=== PATIENT | female | born 2000 | race Caucasian/White ===

== ENCOUNTER 2022-02-19 09:43 | Emergency (ER) | payer OTHER, SELFPAY ==
--- NOTE | 2022-02-19 | ECG_ITS ---
Test Reason : med reaction Blood Pressure : / mmHG Vent. Rate : 062 BPM Atrial Rate : 062 BPM P-R Int : 164 ms QRS Dur : 102 ms QT Int : 414 ms P-R-T Axes : 046 041 028 degrees QTc Int : 420 ms Normal sinus rhythm Cannot rule out Anterior infarct , age undetermined but probably from body habitus and lead placement Borderline ECG When compared with ECG of 03-AUG-2012 19:00, No significant changes seen Referred By: Generic ED Physician Electronically Signed By:AZ GUTIERREZ
[2022-02-19 09:53] VITALS: BP 153/57; PULSE 90; O2SAT 100
[2022-02-19 10:23] VITALS: BP 106/59; PULSE 83; RESP 18; TEMP 36.9; O2SAT 100; BMI 19.7
[2022-02-19] MEDS: 0.9 % Sodium Chloride 1,000 ML 999 ML IVCONT (13:30)
[2022-02-19 13:36] LABS: MANUAL DIFF FLAG NO
[2022-02-19 13:39] VITALS: BP 101/62; BP 102/50; PULSE 64; PULSE 65
[2022-02-19 13:40] VITALS: BP 98/69; PULSE 77
[2022-02-19 13:42] LABS: Basophils Percent Auto 0.1 % (0-2); Eosinophils Percent Auto 0.4 % (0-4); Hematocrit 39.6 % (37.0-47.0); Hemoglobin 13.5 g/dl (12.0-16.0); Imm Gran Abs Auto 0.02 X10*3/uL (0.00-0.03); Imm Gran Pct Auto 0.3 % (0.0-0.4); Lymphocytes Absolute Auto 1.9 X10*3/uL (1.2-4.9); Lymphocytes Percent Auto 25.4 % (20-40); Mean Corpuscular HGB Conc 34.1 g/dl (31.0-35.0); Mean Corpuscular Hemoglobin 31.6 pg (27.0-33.0); Mean Corpuscular Volume 92.7 fL (80.0-98.0); Mean Platelet Volume 10.3 fL (9.4-12.3); Monocytes Absolute Auto 0.5 X10*3/uL (0.1-1.2); Neutrophils Absolute Auto 5.1 x10*3/uL (2.0-8.3); Neutrophils Percent Auto 67.8 % (45-73); Platelet Count 194 X10*3/uL (160-400); Red Blood Count 4.27 X10*6/uL (4.20-5.50); Red Cell Distribution Width 13.1 % (11.0-16.0); White Blood Count 7.5 X10*3/uL (4.8-10.8)
[2022-02-19 13:54] LABS: Appearance Urine CLEAR; Color Urine STRAW; Glucose Urine UA NEG (NEG); Leukocyte Esterase Urine NEG (NEG); Nitrite Urine NEG (NEG); Urine Blood NEG (NEG); Urine Ketones NEG (NEG); Urine Protein NEG (NEG-TRACE)
[2022-02-19 13:55] LABS: UPreg QC Valid YES; Urine Pregnancy NEGATIVE (NEGATIVE)
[2022-02-19 14:26] LABS: Fentanyl, urine Not Detected (Not Detect)
[2022-02-19 14:30] LABS: Alanine Aminotransferase 15 U/L (0-31); Albumin Level 4.3 g/dL (3.5-5.0); Alkaline Phosphatase 90 U/L (39-117); Anion Gap 13 (12-20); Aspartate Amino Transferase 19 U/L (5-31); Bilirubin Total 0.4 mg/dL (0.0-1.0); Blood Urea Nitrogen 9 mg/dL (9-16); Calcium 9.2 mg/dL (8.4-10.2); Carbon Dioxide 24 mmol/L (22-29); Chloride 105 mmol/L (96-108); Creatinine Clr Calc Pharmacy 98.2; Estimated Glomerular Filt Rate > 60; Glucose Random 79 mg/dL (60-115); Magnesium 1.9 mg/dL (1.6-2.6); Potassium 4.2 mmol/L (3.3-5.1); Sodium 138 mmol/L (135-145); Total Protein 7.3 g/dL (6.5-8.0)
[2022-02-19 14:31] LABS: Amphetamine Screen Urine Not Detected (Not Detect); Barbiturates, Urine Not Detected (Not Detect); Cannabinoid Screen Urine Not Detected (Not Detect); Cocaine Screen Urine Not Detected (Not Detect); Opiate Screen Urine Not Detected (Not Detect); Phencyclidine Screen Urine Not Detected (Not Detect)
--- NOTE | 2022-02-19 14:47 | ED.GENADULT ---
HPI - General Adult General Chief complaint: General Medical Stated complaint: RXN TO NEW MED,NAUSEA,LIGHTHEADED Time Seen by Provider: 02/19/22 13:11 Source: patient and EMS Mode of arrival: EMS Limitations: no limitations History of Present Illness HPI narrative: 21-year-old female with a past medical history of depression who was recently prescribed Cymbalta 20 mg on Saturday02/17/2022 and took the Cymbalta around 09:00 presenting to the ED with complaints of intermittent dizziness/lightheadedness with associated hot and cold sweats and nausea since 13:00 on Saturday after she took the Cymbalta. Reports that she went to [facility] the same day but was never seen due to a long wait and she left without being seen. She has been taking the Cymbalta since Saturday although she still developing the mild nausea, feeling spacey and lightheadedness. 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 An IV was placed by EMS prior to arrival although she refused any meds due to her nausea she reported was not bad. At this time she reports that she does not feel dizzy or lightheaded and she does not have the hot and cold sweats at this time she does have some mild nausea but does not want any medications for at this time. She denies any recent falls or trauma, changes in vision, fevers, nasal congestion/rhinorrhea, sinus pressure, ear pain, sore throat, chest pain or shortness of breath, dyspnea on exertion, orthopnea, palpitations, paresthesias, vomiting, abdominal pain, back pain, dysuria, hematuria, abnormal vaginal discharge, lower extremity edema or calf tenderness, recent travel or sick contacts, rashes, recent immobilization or surgery, history of cancer, any estrogen usage or any other symptoms complaints or concerns at this time. MD complaint: Dizziness, nausea, hot and cold sweats after starting Cymbalta Onset (ago): day(s) (2) Related Data Previous Rx's Medication Instructions Recorded ondansetron 4 mg disintegrating 4 mg PO Q6H PRN nausea and 02/19/22 tablet vomiting #14 tabs Allergies Allergy/AdvReac Type Severity Reaction Status Date / Time sulfamethoxazole Allergy Seizure Verified 02/19/22 10:29 [From Bactrim] trimethoprim [From Bactrim] Allergy Seizure Verified 02/19/22 10:29 Review of Systems Review of Systems: Constitutional : No changes in activity, No lethargy, No recent prior head injury, No agitation, No increased fussiness ENT/Mouth : No Ear Pain, No Nasal discharge/drainage Eyes: No Eye Pain, No Swelling, No Redness, No Foreign Body, No Vision Changes Cardiovascular : No Chest Pain, No SOB Respiratory : No Cough Gastrointestinal : + Nausea, No Vomiting, No abdominal Pain Genitourinary : No Dysuria, No Urinary Frequency, No Urinary Incontinence, No Urgency, No Flank Pain Musculoskeletal : No joint pain, No neck stiffness, No back pain/injury Skin : No lacerations Neuro : + lightheadedness/dizziness, No unsteady gait, No Paresthesias, No Loss of Consciousness, No altered mental status, No Headache Denies past medical history of HIV, recent trauma, coagulopathy, recent spinal/ epidural procedure, new medication, URI symptoms, close contacts with similar symptoms, tick bite, or known CO2 exposure. Yes all other systems are reviewed and are negative PMFSH Past Medical History Attestation statement: The following information was validated with the patient. Source: old records reviewed and nursing notes reviewed Social History Social History Advance Directives: No Advance Directives Information Provided: No Physical Exam ED Vital Signs: Vital Signs - 24 hr 02/19/22 10:23 02/19/22 13:39 02/19/22 13:39 Temperature 98.4 F Pulse Rate 83 65 64 Respiratory Rate 18 Blood Pressure 106/59 L 102/50 L 101/62 Pulse Oximetry 100 Oxygen Delivery Method Room Air 02/19/22 13:40 Temperature Pulse Rate 77 Respiratory Rate Blood Pressure 98/69 Pulse Oximetry Oxygen Delivery Method BMI result Body Mass Index 19.7 vital signs have been reviewed as normal and appeared to be correct. Blood pressure normal. Heart rate normal. Respiration rate normal. Temperature normal. Oxygen saturation normal. Appearance: Alert. Oriented X3. No acute distress. Head: Normal external exam. Normocephalic. Atraumatic. Eyes: PERRLA. EOMI. Conjunctiva and sclera normal. Eyelids normal. ENT: EAC normal. TM's Normal. Pharynx normal. Uvula midline. Moist mucous membranes. No lesions/ulcerations or masses noted on the tongue. Normal voice. No trismus noted. No drooling noted. No muffled voice noted. Neck: Normal inspection. Neck supple. FROM. No adenopathy. Thyroid Normal. No tracheal deviation noted. No crepitus is noted. No meningeal signs. No neck mass noted. No signs of trauma noted. CVS: Normal heart rate and rhythm. Heart sound normal. Pulses normal throughout. No murmurs/rales/gallops. Respiratory: No respiratory distress. Painless inspiration. Breath sounds normal. No wheezes/rales/rhonchi noted. Chest nontender. No crepitus is noted. No signs of trauma noted. No accessory muscle usage noted or decreased air movement noted. No signs of trauma. Abdomen: Soft and nontender. Bowel sounds normal in all 4 quadrants. No distention noted. No organomegaly noted. No visible injury noted. Back: No CVA tenderness. Full range of motion noted. Nontender. No signs of trauma. Patient neuro intact bilaterally and distally on all 4 extremities. Patient's reflexes intact bilaterally and distally on all 4 extremities. No rashes/lesion/induration/fluctuance or signs of infection noted. Skin: Skin warm and dry. Normal skin color. Normal skin turgor. No rashes/lesions/lacerations noted. Extremities: No lower extremity edema. No calf tenderness is noted. Extremities exhibit normal range of motion and nontender. Neuro: Oriented X 3. No motor deficit. No sensory deficit. Reflexes normal. Normal steady gait. No focal neuro deficits noted. CN's II-XII intact bilaterally? Vascular: + radial pulses/+ 2 distal pedal pulses/+2 dorsalis pedis b/l. Normal cap refill. No cyanosis noted to upper extremity nails and lower extremity toes nails. Course Course Course Narrative: 13:20pm - 21-year-old female with a past medical history of depression who was recently prescribed Cymbalta 20 mg on Saturday02/17/2022 and took the Cymbalta around 09:00 presenting to the ED with complaints of intermittent dizziness/lightheadedness with associated hot and cold sweats and nausea since 13:00 on Saturday after she took the Cymbalta. Reports that she went to [facility] the same day but was never seen due to a long wait and she left without being seen. She has been taking the Cymbalta since Saturday although she still developing the mild nausea, feeling spacey and lightheadedness. 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 An IV was placed by EMS prior to arrival although she refused any meds due to her nausea she reported was not bad. At this time she reports that she does not feel dizzy or lightheaded and she does not have the hot and cold sweats at this time she does have some mild nausea but does not want any medications for at this time. Plan: Labs, EKG, orthostatic vitals, UA, drugs of abuse screen and [facility] provide a L of IV fluids and re-evaluate. Reevaluation(s) Reevaluation #1: - labs reviewed and all within normal limits. UA within normal limits no evidence of UTI. Patient negative for . Benzo screen is pending although all other drugs negative. EKG is normal sinus rhythm no acute ischemic changes with a ventricular rate of 62 with a normal SC interval normal QRS duration normal QT/QTC interval. No acute ischemic changes are noted. Similar compared to prior EKG 08/03/2012. - therefore at this time patient most likely medication reaction/adverse effect. I explained to her that I would not take the medications and she has not taken it since Saturday and I would call her prescriber for a new medication or further evaluation treatment to return if any new or worsening symptoms follow up with primary care provider. Patient understands agrees with this plan. Time: 14:57 Medical Decision Making Medical Records Medical records reviewed: Yes I reviewed the patient's medical records. Lab Data Lab results reviewed: Yes I reviewed the patient's lab results. Result diagrams: 02/19/22 13:33 02/19/22 13:33 Labs: Lab Results 02/19/22 02/19/22 02/19/22 Range/Units 13:33 13:33 13:35 WBC 7.5 (4.8-10.8) X10*3/uL RBC 4.27 (4.20-5.50) X10*6/uL Hgb 13.5 (12.0-16.0) g/dl Hct 39.6 (37.0-47.0) % MCV 92.7 (80.0-98.0) fL MCH 31.6 (27.0-33.0) pg MCHC 34.1 (31.0-35.0) g/dl RDW 13.1 (11.0-16.0) % Plt Count 194 (160-400) X10*3/uL MPV 10.3 (9.4-12.3) fL Immature Gran % (Auto) 0.3 (0.0-0.4) % Neut % (Auto) 67.8 (45-73) % Lymph % (Auto) 25.4 (20-40) % Chase % (Auto) 6.0 (2-11) % Eos % (Auto) 0.4 (0-4) % Baso % (Auto) 0.1 (0-2) % Lymph # (Auto) 1.9 (1.2-4.9) X10*3/uL Chase # (Auto) 0.5 (0.1-1.2) X10*3/uL Eos # (Auto) 0.0 (0.0-0.4) X10*3/uL Baso # (Auto) 0.0 (0.0-0.2) X10*3/uL Abs Immat Gran (auto) 0.02 (0.00-0.03) X10*3/uL Absolute Neuts (auto) 5.1 (2.0-8.3) x10*3/uL Absolute Nucleated RBC 0.000 (0.0-0.012) X10*3/uL Nucleated RBC % (auto) 0.0 (0.0-0.2) /100WBC Sodium 138 (135-145) mmol/L Potassium 4.2 (3.3-5.1) mmol/L Chloride 105 (96-108) mmol/L Carbon Dioxide 24 (22-29) mmol/L Anion Gap 13 (12-20) BUN 9 (9-16) mg/dL Creatinine 0.74 (0.5-1.4) mg/dL Estim Creat Clear Calc 98.2 Estimated GFR > 60 Random Glucose 79 (60-115) mg/dL Calcium 9.2 (8.4-10.2) mg/dL Magnesium 1.9 (1.6-2.6) mg/dL Total Bilirubin 0.4 (0.0-1.0) mg/dL AST 19 (5-31) U/L ALT 15 (0-31) U/L Alkaline Phosphatase 90 (39-117) U/L Total Protein 7.3 (6.5-8.0) g/dL Albumin 4.3 (3.5-5.0) g/dL Urine Color STRAW Urine Appearance CLEAR Urine pH 8.0 (5.0-8.0) Ur Specific [place] 1.010 (1.005-1.025) Urine Protein NEG (NEG-TRACE) MG/DL Urine Glucose (UA) NEG (NEG) MG/DL Urine Ketones NEG (NEG) MG/DL Urine Blood NEG (NEG) Urine Nitrite NEG (NEG) Ur Leukocyte Esterase NEG (NEG) Urine Test (NEGATIVE) Urine Opiates Screen (Not Detect) Urine Fentanyl Screen (Not Detect) Ur Barbiturates Screen (Not Detect) Ur Phencyclidine Scrn (Not Detect) Ur Amphetamines Screen (Not Detect) Urine Cocaine Screen (Not Detect) U Marijuana (THC) Screen (Not Detect) 02/19/22 02/19/22 Range/Units 13:35 13:35 WBC (4.8-10.8) X10*3/uL RBC (4.20-5.50) X10*6/uL Hgb (12.0-16.0) g/dl Hct (37.0-47.0) % MCV (80.0-98.0) fL MCH (27.0-33.0) pg MCHC (31.0-35.0) g/dl RDW (11.0-16.0) % Plt Count (160-400) X10*3/uL MPV (9.4-12.3) fL Immature Gran % (Auto) (0.0-0.4) % Neut % (Auto) (45-73) % Lymph % (Auto) (20-40) % Chase % (Auto) (2-11) % Eos % (Auto) (0-4) % Baso % (Auto) (0-2) % Lymph # (Auto) (1.2-4.9) X10*3/uL [place] # (Auto) (0.1-1.2) X10*3/uL Eos # (Auto) (0.0-0.4) X10*3/uL Baso # (Auto) (0.0-0.2) X10*3/uL Abs Immat Gran (auto) (0.00-0.03) X10*3/uL Absolute Neuts (auto) (2.0-8.3) x10*3/uL Absolute Nucleated RBC (0.0-0.012) X10*3/uL Nucleated RBC % (auto) (0.0-0.2) /100WBC Sodium (135-145) mmol/L Potassium (3.3-5.1) mmol/L Chloride (96-108) mmol/L Carbon Dioxide (22-29) mmol/L Anion Gap (12-20) BUN (9-16) mg/dL Creatinine (0.5-1.4) mg/dL Estim Creat Clear Calc Estimated GFR Random Glucose (60-115) mg/dL Calcium (8.4-10.2) mg/dL Magnesium (1.6-2.6) mg/dL Total Bilirubin (0.0-1.0) mg/dL AST (5-31) U/L ALT (0-31) U/L Alkaline Phosphatase (39-117) U/L Total Protein (6.5-8.0) g/dL Albumin (3.5-5.0) g/dL Urine Color Urine Appearance Urine pH (5.0-8.0) Ur Specific [place] (1.005-1.025) Urine Protein (NEG-TRACE) MG/DL Urine Glucose (UA) (NEG) MG/DL Urine Ketones (NEG) MG/DL Urine Blood (NEG) Urine Nitrite (NEG) Ur Leukocyte Esterase (NEG) Urine Test NEGATIVE (NEGATIVE) Urine Opiates Screen Not Detected (Not Detect) Urine Fentanyl Screen Not Detected (Not Detect) Ur Barbiturates Screen Not Detected (Not Detect) Ur Phencyclidine Scrn Not Detected (Not Detect) Ur Amphetamines Screen Not Detected (Not Detect) Urine Cocaine Screen Not Detected (Not Detect) U Marijuana (THC) Screen Not Detected (Not Detect) ECG Data Attestation: I personally reviewed and interpreted this ECG as follows: Prior ECG tracings: available for review Interpretation: Normal sinus rhythm with ventricular rate of 62 with a normal SC interval normal QRS duration normal QT/QTC interval. No acute ischemic change are noted. Similar compared to prior EKG. Discharge Plan Discharge Clinical Impression: Adverse reaction to antidepressant drug Patient Disposition: Home, Self-Care Instructions: Adverse Drug Reaction (ED) Prescriptions: New ondansetron 4 mg tablet,disintegrating 4 mg PO Q6H PRN (Reason: nausea and vomiting) Qty: 14 0RF Referrals: Physician,Unknown J [Primary Care Provider] - 2 days (your pcp) Stand Alone Forms: Work/School Release
== END 2022-02-19 15:26 | disposition home or self-care (01) ==
PROVIDERS: Physician Assistant Medical; Emergency Provider Emergency Medicine Emergency Medical Services
DX: R42 Dizziness and giddiness (principal); R11.2 Nausea with vomiting, unspecified; R61 Generalized hyperhidrosis; Z79.899 Other long term (current) drug therapy
CPT/HCPCS: 36415; 80053; 80307; 81003; 81025; 83735; 85025; 93005; 99284

== ENCOUNTER 2022-04-29 18:48 | Emergency (ER) | payer OTHER, SELFPAY ==
[2022-04-29 19:30] VITALS: BP 128/71; PULSE 84; RESP 16; TEMP 36.9; O2SAT 99; BMI 19.7
[2022-04-29 21:21] VITALS: BP 102/56; PULSE 80; RESP 18; TEMP 37; O2SAT 100
--- NOTE | 2022-04-29 21:36 | ED_ITS ---
HPI - Female Genitourinary General Chief complaint: Vaginal Bleeding Stated complaint: Lower Abd Pain Time Seen by Provider: 04/29/22 21:15 Source: patient Mode of arrival: ambulatory History of Present Illness HPI Narrative: 21-year-old female without significant past medical history presents with onset of vaginal bleeding approximately 2 weeks after her previous. That she states has been associated abdominal discomfort, with ?menstrual- like pain? but states that the bleeding is not her ?normal menstrual bleeding ?. Patient does report that she has stopped taking her control in January and also reports unprotected sexual intercourse approximately 2 weeks ago. She did take a home test which was negative. Otherwise, she denies any nausea, vomiting, fever, chills, vaginal discharge or foul smell Related Data Previous Rx's Medication Instructions Recorded ondansetron 4 mg disintegrating 4 mg PO Q6H PRN nausea and 02/19/22 tablet vomiting #14 tabs Allergies Allergy/AdvReac Type Severity Reaction Status Date / Time sulfamethoxazole Allergy Seizure Verified 02/19/22 10:29 [From Bactrim] trimethoprim [From Bactrim] Allergy Seizure Verified 02/19/22 10:29 Review of Systems Review of Systems: Pertinent positives and negatives as stated in HPI 10 point review of systems is otherwise negative. PMFSH Past Medical History Source: nursing notes reviewed Social History Social History Advance Directives: No Advance Directives Information Provided: No Physical Exam Vital Signs: Vital Signs: Last Vital Signs Temp 98.6 F 04/29/22 21:21 Pulse 80 04/29/22 21:21 Resp 18 04/29/22 21:21 BP 102/56 L 04/29/22 21:21 Pulse Ox 100 04/29/22 21:21 O2 Del Method 04/29/22 21:21 BMI result Body Mass Index 19.7 VITAL SIGNS: Reviewed. GENERAL: Well developed, well nourished, in no acute distress. HEAD: Normocephalic/atraumatic EYES: PERRLA, EOMI EARS: Ext canals without abnormality OROPHARYNX: no oral lesions noted, posterior pharynx clear LUNGS: Normal breath sounds. No adventitious sounds or accessory muscle use. SpO2<100> CARDIOVASCULAR: Regular rate and rhythm without noted murmurs ABDOMEN: Soft, non-tender, non-distended with bowel sounds. MUSCULOSKELETAL: No tenderness, deformities, or effusions noted on gross inspection. EXTREMITIES: No cyanosis, clubbing or edema. SKIN: Inspection of the skin reveals no rashes NEUROLOGIC: Alert and oriented x 4. Strength and sensation to light touch were grossly intact x 4. Course Course Course Narrative: 21-year-old female with history and clinical presentation most consistent with menstrual bleeding, will rule out /UTI/STI. Review of all investigations otherwise negative for UTI, , and no clinical suspicion for STI symptoms at this time. Patient was encouraged to follow-up on the results via the patient portal. [facility] - Female Genitourinary Lab Data Labs: Lab Results 04/29/22 04/29/22 Range/Units 21:58 21:58 Urine Color Yellow Urine Appearance Clear Urine pH 7.0 (5.0-9.0) Ur Specific [place] <= 1.005 (1.005-1.025) Urine Protein Negative (Neg-Trace) mg/dL Urine Glucose (UA) Negative (Negative) mg/dL Urine Ketones Negative (Negative) mg/dL Urine Blood Small (1+) H (Negative) Urine Nitrite Negative (Negative) Ur Leukocyte Esterase Negative (Negative) Urine RBC 0-2 (0-2) /HPF Urine WBC 0-5 (0-5) /HPF Ur Squamous Epith Cells 0-2 (0-2) /HPF Urine Bacteria None Seen (None Seen) Hyaline Casts 0-2 (0-2) /LPF Urine Test NEGATIVE (NEGATIVE) Discharge Plan Discharge Clinical Impression: Menstrual cramps, Irregular menstrual bleeding Patient Disposition: Home, Self-Care Instructions: Dysmenorrhea (ED) Additional Instructions: 1. Tylenol 1000 mg, orally, every 6 hours as needed for pain control. Do not exceed 4000 mg within 24 hours. 2. Ibuprofen 400 mg, orally with milk or food, every 6 hours as needed for pain control. You may take this medication with the Tylenol. 3. Recommend heating pad for additional symptom relief of your discomfort. 4. Follow-up with your primary care provider and/or your science writer for re- evaluation further outpatient workup. Return to the ER for worsening symptoms. Prescriptions: No Action ondansetron 4 mg tablet,disintegrating 4 mg PO Q6H PRN (Reason: nausea and vomiting) Qty: 14 0RF Referrals: Mariely Dailey, MARK, MEDICAL GENETICIST, ZOOLOGY PROFESSOR-C [Primary Care Provider] -
[2022-04-29] MEDS: Acetaminophen 325 MG TABLET 975 MG PO (21:57)
[2022-04-29 22:32] LABS: Appearance Urine Clear; Color Urine Yellow; Glucose Urine UA Negative (Negative); Leukocyte Esterase Urine Negative (Negative); Nitrite Urine Negative (Negative); Specific Gravity - Urine <= 1.005 (1.005-1.025); Urine Blood Small (1+) (Negative); Urine Ketones Negative (Negative); Urine Protein Negative (Neg-Trace)
[2022-04-29 22:35] LABS: UPreg QC Valid YES; Urine Pregnancy NEGATIVE (NEGATIVE)
[2022-04-29 22:49] LABS: Bacteria Urine None Seen (None Seen); Hyaline Casts Urine 0-2 /LPF (0-2); RBC Urine 0-2 /HPF (0-2); Squamous Epithelial Cell Urine 0-2 /HPF (0-2); WBC Urine 0-5 /HPF (0-5)
[2022-04-30 01:00] LABS: CT PCR NOT DETECTED (Not Detect.); NG PCR NOT DETECTED (Not Detect.)
== END 2022-04-29 23:39 | disposition home or self-care (01) ==
PROVIDERS: Emergency Provider Student in an Organized Health Care Education/Training Program; PCP Registered Nurse
DX: N93.8 Other specified abnormal uterine and vaginal bleeding (principal); R10.2 Pelvic and perineal pain; Z79.899 Other long term (current) drug therapy
CPT/HCPCS: 81001; 81025; 87491; 87591; 99283

== ENCOUNTER 2023-03-18 20:28 | Emergency (ER) | payer OTHER, SELFPAY ==
--- NOTE | 2023-03-18 | ECG_ITS ---
Test Reason : PALPITATIONS Blood Pressure : / mmHG Vent. Rate : 081 BPM Atrial Rate : 081 BPM P-R Int : 170 ms QRS Dur : 104 ms QT Int : 388 ms P-R-T Axes : 069 051 045 degrees QTc Int : 450 ms Sinus rhythm with occasional Premature ventricular complexes Cannot rule out Anterior infarct (cited on or before 19-FEB-2022) Abnormal ECG When compared with ECG of 19-FEB-2022 12:48, Premature ventricular complexes are now Present Referred By: Generic ED Physician Electronically Signed By:DONNA CARDONA MD
[2023-03-18 20:57] VITALS: BP 119/58; PULSE 78; RESP 18; TEMP 36.7; O2SAT 99; BMI 19.7
--- NOTE | 2023-03-18 20:57 | ED_ITS ---
HPI - General Adult General Chief complaint: Arrhythmia/Palpitations Stated complaint: chest palpitations Related Data Previous Rx's Medication Instructions Recorded ondansetron 4 mg disintegrating 4 mg PO Q6H PRN nausea and 02/19/22 tablet vomiting #14 tabs Allergies Allergy/AdvReac Type Severity Reaction Status Date / Time sulfamethoxazole Allergy Seizure Verified 03/18/23 20:56 [From Bactrim] trimethoprim [From Bactrim] Allergy Seizure Verified 03/18/23 20:56 [facility] Social History Social History Advance Directives: No Advance Directives Information Provided: No Physical Exam ED Vital Signs: BMI result Body Mass Index 19.7 Course Course Course Narrative: RME- 22 year old female presents for evaluation of palpitations. Symptoms started yesterday and worsesned today. Plan for labs, ekg, , drug screen Medical Decision Making Lab Data 03/18/23 21:33 03/18/23 21:33 Labs: Lab Results 03/18/23 03/18/23 Range/Units 21:33 21:47 WBC 5.7 (4.8-10.8) X10*3/uL RBC 3.89 L (4.20-5.50) X10*6/uL Hgb 12.8 (12.0-16.0) g/dl Hct 37.0 (37.0-47.0) % MCV 95.1 (80.0-98.0) fL MCH 32.9 (27.0-33.0) pg MCHC 34.6 (31.0-35.0) g/dl RDW 12.5 (11.0-16.0) % Plt Count 219 (160-400) X10*3/uL MPV 10.1 (9.4-12.3) fL Immature Gran % (Auto) 0.2 (0.0-0.4) % Neut % (Auto) 50.5 (45-73) % Lymph % (Auto) 41.3 H (20-40) % [place] % (Auto) 6.2 (2-11) % Eos % (Auto) 1.4 (0-4) % Baso % (Auto) 0.4 (0-2) % Lymph # (Auto) 2.3 (1.2-4.9) X10*3/uL [place] # (Auto) 0.4 (0.1-1.2) X10*3/uL Eos # (Auto) 0.1 (0.0-0.4) X10*3/uL Baso # (Auto) 0.0 (0.0-0.2) X10*3/uL Abs Immat Gran (auto) 0.01 (0.00-0.03) X10*3/uL Absolute Neuts (auto) 2.9 (2.0-8.3) x10*3/uL Absolute Nucleated RBC 0.000 (0.0-0.012) X10*3/uL Nucleated RBC % (auto) 0.0 (0.0-0.2) /100WBC PT 12.5 (10.0-13.1) SEC INR 1.1 (0.9-1.1) APTT 27.4 (26.0-36.4) SEC Sodium 140 (135-145) mmol/L Potassium 4.1 (3.3-5.1) mmol/L Chloride 107 (96-108) mmol/L Carbon Dioxide 29 (22-29) mmol/L Anion Gap 8 L (12-20) BUN 8 L (9-16) mg/dL Creatinine 0.79 (0.5-1.4) mg/dL Estim Creat Clear Calc 91.1 Estimated GFR > 60 Random Glucose 86 (60-115) mg/dL Calcium 9.4 (8.4-10.2) mg/dL Magnesium 2.0 (1.6-2.6) mg/dL Total Bilirubin 0.2 (0.0-1.0) mg/dL AST 18 (5-31) U/L ALT 22 (0-31) U/L Alkaline Phosphatase 62 (39-117) U/L Troponin I High Sens < 2.7 (<3.5-17.0) ng/L Total Protein 7.2 (6.5-8.0) g/dL Albumin 4.2 (3.5-5.0) g/dL Lipase 35 (8-78) U/L TSH 0.93 (0.32-4.0) uIU/mL Urine Test NEGATIVE (NEGATIVE) Urine Opiates Screen Not Detected (Not Detect) Urine Fentanyl Screen Not Detected (Not Detect) Ur Barbiturates Screen Not Detected (Not Detect) Ur Phencyclidine Scrn Not Detected (Not Detect) Ur Amphetamines Screen Not Detected (Not Detect) U Benzodiazepines Scrn Not Detected (Not Detect) Urine Cocaine Screen Not Detected (Not Detect) U Marijuana (THC) Screen Not Detected (Not Detect) Discharge Plan Discharge Clinical Impression: Palpitations Patient Disposition: Elopement Prescriptions: No Action ondansetron 4 mg tablet,disintegrating 4 mg PO Q6H PRN (Reason: nausea and vomiting) Qty: 14 0RF Interventions: ED Discharge Assessment Last Done: 03/18/23 23:43 Discharge Date/Time: 03/18/23 23:43
[2023-03-18 21:49] LABS: Basophils Percent Auto 0.4 % (0-2); Eosinophils Absolute Auto 0.1 X10*3/uL (0.0-0.4); Eosinophils Percent Auto 1.4 % (0-4); Hemoglobin 12.8 g/dl (12.0-16.0); Imm Gran Abs Auto 0.01 X10*3/uL (0.00-0.03); Imm Gran Pct Auto 0.2 % (0.0-0.4); Lymphocytes Absolute Auto 2.3 X10*3/uL (1.2-4.9); Lymphocytes Percent Auto 41.3 % (20-40); MANUAL DIFF FLAG NO; Mean Corpuscular HGB Conc 34.6 g/dl (31.0-35.0); Mean Corpuscular Hemoglobin 32.9 pg (27.0-33.0); Mean Corpuscular Volume 95.1 fL (80.0-98.0); Mean Platelet Volume 10.1 fL (9.4-12.3); Monocytes Absolute Auto 0.4 X10*3/uL (0.1-1.2); Monocytes Percent Auto 6.2 % (2-11); Neutrophils Absolute Auto 2.9 x10*3/uL (2.0-8.3); Neutrophils Percent Auto 50.5 % (45-73); Platelet Count 219 X10*3/uL (160-400); Red Blood Count 3.89 X10*6/uL (4.20-5.50); Red Cell Distribution Width 12.5 % (11.0-16.0); White Blood Count 5.7 X10*3/uL (4.8-10.8)
[2023-03-18 21:54] LABS: INTERNATIONAL NORM RATIO 1.1 (0.9-1.1); Prothrombin Time 12.5 SEC (10.0-13.1)
[2023-03-18 21:57] LABS: Partial Thromboplastin Time 27.4 SEC (26.0-36.4)
[2023-03-18 22:02] LABS: UPreg QC Valid YES; Urine Pregnancy NEGATIVE (NEGATIVE)
[2023-03-18 22:14] LABS: Amphetamine Screen Urine Not Detected (Not Detect); Barbiturates, Urine Not Detected (Not Detect); Benzodiazepines Screen Urine Not Detected (Not Detect); Cannabinoid Screen Urine Not Detected (Not Detect); Cocaine Screen Urine Not Detected (Not Detect); Fentanyl, urine Not Detected (Not Detect); Opiate Screen Urine Not Detected (Not Detect); Phencyclidine Screen Urine Not Detected (Not Detect)
[2023-03-18 22:16] LABS: Alanine Aminotransferase 22 U/L (0-31); Albumin Level 4.2 g/dL (3.5-5.0); Alkaline Phosphatase 62 U/L (39-117); Anion Gap 8 (12-20); Aspartate Amino Transferase 18 U/L (5-31); Bilirubin Total 0.2 mg/dL (0.0-1.0); Blood Urea Nitrogen 8 mg/dL (9-16); Calcium 9.4 mg/dL (8.4-10.2); Carbon Dioxide 29 mmol/L (22-29); Chloride 107 mmol/L (96-108); Creatinine Clr Calc Pharmacy 91.1; Estimated Glomerular Filt Rate > 60; Glucose Random 86 mg/dL (60-115); Lipase 35 U/L (8-78); Potassium 4.1 mmol/L (3.3-5.1); Sodium 140 mmol/L (135-145); Total Protein 7.2 g/dL (6.5-8.0)
[2023-03-18 22:17] LABS: Troponin-I High Sensitivity < 2.7 ng/L (<3.5-17.0)
[2023-03-18 22:31] LABS: TSH reflex Free T4 0.93 uIU/mL (0.32-4.0)
== END 2023-03-18 23:43 | disposition left against medical advice (07) ==
PROVIDERS: Physician Assistant; Emergency Provider Emergency Medicine; PCP Registered Nurse
DX: R00.2 Palpitations (principal)
CPT/HCPCS: 36415; 80053; 80307; 81025; 83690; 83735; 84443; 84484; 85025; 85610; 85730; 93005; 99283

== ENCOUNTER → 2023-03-18 21:40 | Outpatient (BNV) | payer OTHER, SELFPAY | PROVIDERS: Emergency Provider Emergency Medicine; PCP Registered Nurse; Visit Provider Internal Medicine Cardiovascular Disease | DX: R00.2 Palpitations (principal) | CPT/HCPCS: 93010 ==

== ENCOUNTER 2024-02-25 08:32 | Emergency (ER) | payer SELFPAY ==
[2024-02-25 08:40] VITALS: BP 110/62; PULSE 97; RESP 16; TEMP 37.1; O2SAT 99; BMI 20.6
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
[2024-02-25 09:17] VITALS: BP 113/61; BP 127/67; PULSE 80; PULSE 88
[2024-02-25 09:18] VITALS: BP 126/59; PULSE 95
[2024-02-25 10:20] VITALS: BP 104/55; PULSE 87; RESP 18; TEMP 37.1; O2SAT 99
[2024-02-25 10:24] VITALS: BP 104/55; PULSE 87; RESP 18; TEMP 37.1; O2SAT 99
== END 2024-02-25 10:26 | disposition home or self-care (01) ==
PROVIDERS: Emergency Provider Emergency Medicine
DX: F07.81 Postconcussional syndrome (principal); R42 Dizziness and giddiness; R53.83 Other fatigue
CPT/HCPCS: 99282; 99283

== ENCOUNTER 2025-06-17 11:52 | Outpatient (AMB) | payer OTHER, SELFPAY ==
--- NOTE | 2025-06-17 12:01 | A.OFFPC_ITS ---
Vital Signs 06/17/25 12:09 Height 54 ft Weight 120 lb 2 oz BMI 0.2 BP 100/58 L Blood Pressure Location Lt brachial Position Sitting Respiration 15 Pulse 91 Pulse Source Pulse Oximeter Temp 99.0 F Temp Source Temporal Artery Scan Pulse Oximetry (%) 98 Oxygen Delivery Method Room Air Intake Visit Reasons: CPE/PCOS Intake Note: Ruby presents in the office today to establish care. Allergies sulfamethoxazole (From Bactrim) Allergy (Verified 06/17/25 12:04) Seizure trimethoprim (From Bactrim) Allergy (Verified 06/17/25 12:04) Seizure Medication List - Last Reconciled 06/19/25 by AFIA Villalpando bupropion HCl XL (Wellbutrin XL) 150 mg PO QAM carbamide peroxide 6.5% (Debrox) 5 drps otic (ears) Q12H 4 days norethindrone ac-eth estradiol 1-20 mg-mcg (Junel) tabs PO Tobacco use date assessed: 06/17/25 Dental Screening Dental Screen Date: 06/17/25 Did you have a dental visit in the last 12 months?: Yes Did you have a dental problem in the last 6 months where you did not have access to dental care?: No Was dental information given to patient?: Patient has dentist HPI HPI Comments History of Present Illness Details 24 year old female with a pmhx of palpit ations and depression presents to establish care. Transfer from [facility]. Endorses 1.5 months of intermittent dizziness, mild ear pain alternating or affected both ears and intermittent decreased hearing of the ears. Left side is worse than the right. Symptoms fluctuate. Describes dizziness as dysequilibrium. No room spinning, lightheadedness or syncope. Denies headaches, allergies, congestion, vomiting, nausea. Denies new medications. Endorses a history of heart palpitations. Was seen at the ED in the past. Reportedly normal work up there. Happens when she goes from kneeling or sitting to standing. Stops after a minute or so. She was told to increase fluids so she started drinking gatorade. She says this is happening more frequently. Denies dizziness, syncope, chest pain and shortness of breath. Her blood pressure runs low. GM has a history of structural heart disease. She was diagnosed with PCOS by her PCP after lab evaluation. Requests info for [employer] providers and pelvic u/s. Anxiety and depression-sees therapist, Nidia Alford at [facility] Psychiatrist is through [facility]. They questioned if she might have ADHD, but she says they told her to go to PCP for evaluation. Endorses forgetfulness, problems focusing, difficulty completing tasks. Sister and niece have ADHD. ROS Constitutional: No unexplained weight loss, fever, chills, or night sweats. Eyes: No vision changes, blurry vision, double vision, eye pain, eye redness, eye discharge. ENT: Denies sneezing, congestion, runny nose or sore throat. Respiratory: No shortness of breath, cough or sputum production. Cardiovascular: No chest pain, chest pressure or chest discomfort. No pedal edema. Gastrointestinal: No anorexia, nausea, vomiting or diarrhea. No abdominal pain or blood in stool. Genitourinary: No dysuria, hematuria, urinary frequency. Neurologic: No headache, syncope, unilateral weakness, ataxia, numbness or tingling in the extremities. Musculoskeletal: No muscle pain, back pain, joint pain or swelling. Hematologic/Lymphatics: No bleeding or bruising. No painful lymph nodes. Skin: No rash Endocrine: No cold or heat intolerance. No polyuria or polydipsia. Psychiatric: see HPI .Physical exam: Constitutional: Alert, in no distress. Head: Normocephalic. Eyes: Pupils are equal, round and reactive to light. Extraocular muscles intact. Ear, Nose and Throat: Right canal with excessive brown cerumen. Left canal occluded by brown ceruem. Normal nasal mucosa. No nasal discharge. No oral lesions. Neck: Supple, Full range of motion. No lymphadenopathy. No palpable thyroid masses. Respiratory: Clear to auscultation. Cardiovascular: S1 S2 regular. No murmurs. No carotid bruits. Gastrointestinal: Abdomen soft, non-tender, non-distended. Normal bowel sounds. No palpable masses. Genitourinary: No costovertebral angle tenderness. Neurologic:?Alert and oriented x 3, no focal deficits observed, CN 2-12 intact, tcdwxx-pads-wgkxnr normal, sensation equal and symmetric, strength UE and LE 5/5 bilaterally, reflexes equal and symmetric.? Normal gait.? Patient able to heel walk, toe walk and walk heel-to-toe across the floor.? No pronator drift.? Negative Romberg. Skin: No rashes or lesions. Musculoskeletal: No gross deformities. Normal range of motion. Extremities: Warm and well perfused. No clubbing, cyanosis or edema. Intact peripheral pulses bilaterally. Psychiatric: Normal mood and affect [facility] Medical History (Updated 06/19/25 @ 10:27 by AFIA Villalpando) Impaired concentration Routine physical examination Palpitation Decreased hearing Chronic pain of both ears Dizziness History of palpitations Anxiety and depression Family History (Updated 06/17/25 @ 12:08 by Shazia Rahman [facility]) Mother Substance abuse Alcoholism FH: mental illness Anxiety and depression Bipolar 1 disorder Father Substance abuse Alcoholism Maternal Grandfather Alcoholism Substance abuse Sister FH: mental illness Anxiety and depression Social History (Updated 06/17/25 @ 12:09 by Shazia Rahman [facility]) Housing: Apartment Alcohol intake: current Patient Tobacco Use Status: Current everyday Tobacco user (Vaping nicotine) e-Cigarette/Vaping Use: Currently Using Second Hand Smoke Exposure: No service: No Current occupational status: employed and student 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 1. Little interest or pleasure in doing things: more than half the days 2. Feeling down, depressed, or hopeless: several days 3. Trouble falling or staying asleep, or sleeping too much: several days 4. Feeling tired or having little energy: several days 5. Poor appetite or overeating: nearly every day 6. Feeling bad about yourself - or that you are a failure or have let yourself or your family down: not at all 7. Trouble concentrating on things, such as reading the newspaper or watching television: nearly every day 8. Moving or speaking so slowly that other people could have noticed. Or the opposite - being so fidgety or restless that you have been moving around a lot more than usual: not at all 9. Thoughts that you would be better off or of hurting yourself in some way: not at all Total score: 11 Depression Screening Interpretation: Positive Depression Screening Follow-up: Existing condition and In treatment Depression Screening Done: Yes 26844 - PHQ-9 Billing: Yes Source: Developed by Drs. Dany Escobar, Vikash Maddox and colleagues, with an educational kenny from [employer]. Thrive Questionnaire Date Thrive assessed: 06/17/25 I am a: Patient What is your living situation today?: I have a steady place to live Within the past 12 months, did the food you bought not last and you didn't have the money to get more?: Never true Within the past 12 months, did you worry whether your food would run out before you got money to buy more?: Never true Do you have trouble paying for medicines?: No Do you have trouble getting transportation to medical appointments?: No Do you have trouble paying your heating and electricity bill?: No Do you have trouble taking care of your child, family member or friend?: No Do you have trouble with day-to-day activities such as bathing, preparing meals, shopping, managing finances, etc.?: No Are you currently unemployed and looking for a job?: No Are you interested in more education?: No Please select the resources that you would like help with: Paying for medicine Currently or been in a relationship where the following occur: No concerns reported THRIVE Score: 0 AUDIT C Alcohol Use Questionnaire (AUDIT-C) 1. How often do you have a drink containing alcohol?: Never 3. How often do you have six or more drinks on one occasion?: Never Total Score: 0 JUSTYN-7 AMB Questionnaire JUSTYN-7 Date JUSTYN - 7 assessed: 06/17/25 Feeling nervous, anxious, or on edge: 3 = Nearly every day Not being able to stop or control worryin = Nearly every day Worrying too much about different things: 3 = Nearly every day Trouble relaxin = Nearly every day Being so restless that it is hard to sit still: 3 = Nearly every day Becoming easily annoyed or irritable: 0 = Not at all Feeling afraid as if something awful might happen: 3 = Nearly every day Total JUSTYN-7 score (0-4 normal; 5-9 mild; 10-14 moderate; 15-21 severe): 18 Source: Developed by Drs. Dany Escobar, Sanam Salas, Vikash Barr and colleagues, with an educational kenny from [employer]. JUSTYN-7 Assessment Billing JUSTYN-7 Assessment Tool: JUSTYN-7 Assessment 34735 Physical exam (Primary Care) Vital Signs: Last Vital Signs Temp 99.0 F 06/17/25 12:09 Pulse 91 06/17/25 12:09 Resp 15 06/17/25 12:09 BP 100/58 L 06/17/25 12:09 Pulse Ox 98 06/17/25 12:09 Oxygen Delivery Method Room Air 06/17/25 12:09 BMI result Body Mass Index 0.2 Tobacco/Smoking Status: Tobacco use Status Tobacco use date assessed 06/17/25 06/17/25 12:14 Patient Tobacco Use Status Current everyday Tobacco ( 06/17/25 12:14 Vaping nicotine) e-Cigarette/Vaping Use Currently Using 06/17/25 12:14 PHQ-9: PHQ-9 Score PHQ-9: Total score 11 06/18/25 17:07 Depression Screening Interpretation: Positive Depression Screening Follow-up: Existing condition and In treatment Thrive Assessment: Date of Thrive Assessment Date Thrive assessed 06/17/25 06/17/25 12:03 Currently or been in a relationship where the following occur: No concerns reported Office Procedures EKG Details: EKG shows normal sinus rhythm, possible left atrial enlargement, 84 beats per minute 78171-[id number], Complete Coding Level of Care Code New Pt Level 4 (77057) New Pt Prev Care 18-39yr(30502 Diagnoses Routine physical examination Z00.00 Palpitations R00.2 Moderate episode of recurrent major depressive disorder F33.1 Depression Type: major depressive disorder Major depression recurrence: recurrent Active/Remission status: currently active Major depression episode severity: moderate Impaired concentration R41.840 Dizziness R42 Chronic pain of both ears H92.03; G89.29 Decreased hearing of both ears H91.93 Laterality: bilateral CPT Codes EKG - CPT: 16843-[id number], Complete ([id number]) Additional Codes JUSTYN-7 Assessment Billing - JUSTYN-7 Assessment Tool: JUSTYN-7 Assessment 50311 ([id number]) PHQ-9 - 18247 - PHQ-9 Billing: Yes ([id number]) Assessment & Plan Assessment & Plan (1) Routine physical examination: Code(s): Z00.00 - Encounter for general adult medical examination without abnormal findings Category: Medical (2) Palpitations: Code(s): R00.2 - Palpitations Category: Medical (3) Palpitation: Code(s): R00.2 - Palpitations Category: Medical (4) Depression: Code(s): F32.A - Depression, unspecified Category: Medical Qualifiers: Depression Type: major depressive disorder Major depression recurrence: recurrent Active/Remission status: currently active Major depression episode severity: moderate Qualified Code(s): F33.1 - Major depressive disorder, recurrent, moderate (5) Impaired concentration: Code(s): R41.840 - Attention and concentration deficit Category: Medical (6) Dizziness: Code(s): R42 - Dizziness and giddiness Category: Medical (7) Chronic pain of both ears: Code(s): H92.03 - Otalgia, bilateral; G89.29 - Other chronic pain Category: Medical (8) Decreased hearing: Code(s): H91.90 - Unspecified hearing loss, unspecified ear Category: Medical Qualifiers: Laterality: bilateral Qualified Code(s): H91.93 - Unspecified hearing loss, bilateral Plan Patient is seen today for a routine physical. As part of this visit we reviewed the following issues, which are considered and essential part of preventative health in this age group: - Breast Cancer screening - Blood pressure screening annually - Cholesterol screening - Osteoporosis prevention including calcium/vitamin D intake, weight bearing exercise & smoking cessation - Nutritional and exercise counseling - Counseling of injury prevention including fire prevention, smoke alarms and seat belt usage - Screening for depression - Prevention of and/or testing for infectious diseases - agreeable to screenings including HIV testing - Education about skin cancer - Recommendations about immunizations - Recommendation of an eye exam - Screening for substance abuse Proceed with echo, holter monitor and labs for evaluation of palpitations. Maybe due to orthostasis and baseline low BP given positional changes trigger this. POTS on differenttial. Agree with recommendation to increase fluids. Dysequilibruim, ear pain and decreased hearing (all symptoms intermittent) Impacted cerumen on exam. Use debrox drops and return after 4 days of use for nurse visit for irritation Placing ENT referral in the event that symptoms do not resolve with cerumen removal. Would also place referral for MRI to rule out acoustic neuroma if symptoms do not resolve, but this is less likely given bilateral symptoms. Given contact information to call [facility] for scheduleing. Pelvic u/s ordered. Records transfer pending for PCOS work up. Continue management per psych and therapist. Advised pt to ask again about ADHD evaluation. We would refer to psych for this, not the opposite. Provided with contact information for [facility]. Orders: Orders TSH reflex Free T4 06/17/25 R00.2 - Palpitations, R42 - Dizziness and giddiness Lipid Panel 06/17/25 R00.2 - Palpitations, R42 - Dizziness and giddiness Comprehensive Met. Panel 06/17/25 R00.2 - Palpitations, R42 - Dizziness and giddiness Ferritin 06/17/25 R00.2 - Palpitations, R42 - Dizziness and giddiness Magnesium 06/17/25 R00.2 - Palpitations, R42 - Dizziness and giddiness HIV Ab/Ag 06/17/25 Z20.2 - Contact with and (suspected) exposure to infections with a predominantly sexual mode of transmission Hepatitis C Antibody 06/17/25 Z20.2 - Contact with and (suspected) exposure to infections with a predominantly sexual mode of transmission CT NG by PCR Urine 06/17/25 Z20.2 - Contact with and (suspected) exposure to infections with a predominantly sexual mode of transmission US pelvic complete Today E28.2 - Polycystic ovarian syndrome Complete Blood Count no Diff 06/17/25 R00.2 - Palpitations, R42 - Dizziness and giddiness IRON PROFILE 06/17/25 R00.2 - Palpitations, R42 - Dizziness and giddiness AMB EKG-In Office 06/17/25 R42 - Dizziness and giddiness Syphilis Screen 06/17/25 Z20.2 - Contact with and (suspected) exposure to infections with a predominantly sexual mode of transmission CA echo transthoracic complete 06/18/25 R00.2 - Palpitations ECG holter monitor 48 hour 06/18/25 R00.2 - Palpitations Referrals Ear/Nose/Throat Referral G89.29 - Other chronic pain, H91.90 - Unspecified hearing loss, unspecified ear, H92.03 - Otalgia, bilateral, R42 - Dizziness and giddiness Medications: New carbamide peroxide 6.5% (Debrox) 5 drps otic (ears) Q12H 15 mL 0RF 4 days Discontinued ondansetron Discontinued Reason: Patient no longer taking 4 mg PO Q6H PRN 14 tabs 0RF nausea and vomiting
[2025-06-17 12:09] VITALS: BP 100/58; PULSE 91; RESP 15; TEMP 37.2; O2SAT 98
--- OUTSIDE RECORDS SUMMARY | 2025-06-17 15:10 | XMS_ITS | Encounter Summary ---
Author Organization [facility] Address [address] [place] [address] Phone Care Team Providers Care Magazine Keeper Name Role Phone Provider, Patrice MARIA Primary Care Provider [phone] Encounter Details Date Type Department Care Team (Late st Contact Info) Description 04/11/2017 Conversion Encounter [facility] [address] [phone] Social History Tobacco Use Types Packs/Day Years Used Date Smoking Tobacco: Never Comments:Never smoker Comments Unknown Sex and Gender Information Value Date Recorded Sex Assigned at Female 11/04/2019 1:52 PM EDT Legal Sex Female 5:14 PM EDT Gender Identity Female 11/04/2019 1:52 PM EDT Sexual Orientation Straight 11/04/2019 1: 52 PM EDT documented as of this encounter Plan of Treatment Not on file documented as of this encounter Visit Diagnoses Not on filedocumented in this encounter Care Teams Magazine Keeper Relationship Specialty Start Date End Date Provider, MD Patrice [address] [place] [id number] PCP - General Pediatrics 01/24/22 02/14/23 documented as of this encounter
--- OUTSIDE RECORDS SUMMARY | 2025-06-17 15:10 | XMS_ITS | Encounter Summary ---
Author Organization [facility] Address [address] [place] [phone] Phone Care Team Providers Care Auto Body Mechanic Name Role Phone Provider, Patrice MARIA Primary Care Provider Encounter Details Date Type Department Care Team (Late st Contact Info) Description 12/02/2009 Documentation [facility] [place] Family Medicine [address] [place] [address] Family Medicine, Physician [address] [place], [place] [id number] Social History Tobacco Use Types Packs/Day Years Used Date Smoking Tobacco: Never Assessed Comments Unknown Sex and Gender Information Value [...] on filedocumented in this encounter Care Teams Auto Body Mechanic Relationship Specialty Start Date End Date Provider, MD Patrice [address] [place] [phone] PCP - General Pediatrics 01/24/22 02/14/23 documented as of this encounter
--- OUTSIDE RECORDS SUMMARY | 2025-06-17 15:10 | XMS_ITS | Clinical Summary ---
Author Organization [facility] Address [address] [facility] [address] [place] [phone] Phone Care Team Providers Care Radio Message Router Name Role Phone Mariely Dailey NP Primary Care Provider + Allergies Active Allergy Reactions Criticality Noted Date Comments Sulfamethoxazole-Trimethoprim 2017 Serum sickness Medications buPROPion (WELLBUTRIN XL) 150 MG ER 24 hr tablet Take 1 tablet by mouth every morning. 3 Active norethindrone-e thinyl estradiol-iron (LOESTRIN 24 FE 09/14) 1 mg-20 mcg Tab Take 1 tablet by mouth daily. Active hydrOXYzine (ATARAX) 25 MG tablet 3 Active JUNEL 09/14, , 1-20 mg-mcg per tablet Take 1 tablet by mouth daily. Take continuously, no week off or week of placebo pills 84 tablet 3 4 Active lidocaine-hydro coritsone (ANAMANTLE) 3-0.5 % Kit Place 1 applicator rectally 2 (two) times a day as needed. 1 kit 1 4 Active Active Problems Problem Noted Date Diagnosed Date Constipation 11/06/2023 Assessment & Plan (11/06/2023 12:15 PM EDT): Discussed importance of healthier eating in particular strategies to increase fruits and vegetable intake. Recommend she make plans about where to get food when she is out and feeling hungry. Also carry easily portable fruit such as oranges or apples with her. Can take 1 dose of MiraLAX daily on a regular basis with lots of fluid intake to help prevent constipation from developing. Episodic tension-type headache, not intractable 10/08/2017 03/22/2023 Overview (03/22/2023): Last Assessment & Plan: HUMPHREY stopped after pt went on winter vacation and now back occasionally Generalized anxiety disorder 07/16/2016 Overview (03/22/2023): Last Assessment & Plan: Feeling less anxious overall. Family History Medical History Relation Comments No Known Problems Father Anxiety disorder Mother Bipolar disorder Mother Depression Mother Anxiety disorder Sister 1 Depression Sister 1 No Known Problems Sister 2 No Known Problems Sister 3 Relation Status Comments Father Alive Mother Alive Sister 1 Alive Sister 2 Alive Sister 3 Alive Social History Tobacco Use Types Packs/Day Years Used Date Smoking Tobacco: Never Smokeless Tobacco: Never Tobacco Cessation:Counseling Given: Not Answered Alcohol Use Standard Drinks/Week Comments Yes 2 (1 standard drink = 0.6 oz pur e alcohol) monthly Education Answer Date Recorded Are you interested in more education? Not on bright e 12/21/2022 Are you concerned about learning? Not on file 12/21/2022 No 12/21/2022 No 12/21/2022 Digital Access Answer Date Recorded No 01/19/2023 No 01/19/2023 Reliable internet access at home? Not on file 01/19/2023 Device with a working camera? Not on file Intimate Partner Violence Answer Date R ecorded Are you denied basic needs s uch as food, clothing, or medical care? No 12/31/2023 In the past 12 months have y ou been in a relationship with a person who hurts, threatens, or tries to control you? No 12/31/2023 Are you denied basic needs s [facility] as food, clothing, or medical care? No 12/31/2023 In the past 12 months have y ou been in a relationship with a person who hurts, threatens, or tries to control you? 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 Not on file Not on file Not on file Last Filed Vital Signs Vital Sign Reading Time Taken Comments Blood Pressure 111/75 12/31/2023 6:20 PM EDT Pulse 97 12/31/2023 6:20 PM EDT Temperature 37.3 C (99.1 F) 12/31/2023 6:20 PM EDT Respiratory Rate 20 12/31/2023 6:20 PM EDT Oxygen Saturation 100% 12/31/2023 6:20 PM EDT Inhaled Oxygen Concentration - - Weight 54.4 kg (120 lb) 12/31/2023 12:29 PM EDT Height 162.6 cm (5' 4 ) 12/31/2023 12:29 PM EDT Body Mass Index 20.6 12/31/2023 12:29 PM EDT Plan of Treatment Health Maintenance Due Date Last Done Comments DEPRESSION SCREENING 2011 SMOKING Hx and SMOKELESS TOBACCO SCREENING 2012 HPV VACCINES (1 - 3-dose series) 2014 Adult Td,Tdap Booster 03/20/2021 03/20/2011 INFLUENZA VACCINE (#1) 2025 COVID-19 VACCINE (2 - 2024-2 6 season) 2025 09/02/2021 PAP SMEAR 11/05/2026 11/06/2023, 05/16/2021 HEPATITIS C SCREENING Completed 03/22/2023 HIV ONE-TIME SCREENING (18-6 5 YEARS) Completed 03/22/2023 HEPATITIS A VACCINES Aged Out No long er eligible based on patient's age to complete this topic HIB VACCINES Aged Out No longer eligi ble based on patient's age to complete this topic MENINGOCOCCAL VACCINES (ACWY) Aged Out No longer eligible based on patient's age to complete this topic MENINGOCOCCAL VACCINES (B) Aged Out N o longer eligible based on patient's age to complete this topic PNEUMOCOCCAL VACCINES (0-49 years) Aged Out No longer eligible b ased on patient's age to complete this topic Medical Devices Not on file Procedures Procedure Name Priority Date/Time Associated Diagnosis Comments PAP TEST Routine 11/06/2023 12:00 AM EDT HEPATITIS C ANTIBODY, QUALITATIVE Routine 03/22/2023 11:22 AM EDT Need for hepatitis C screening test High risk heterosexual behavior from Last 3 Months or Most Recently Relevant to Health Maintenance Results * Pap Test (11/06/2023 12:00 AM EDT) Report [address] [id number] Imagery Analyst: Quynh Luna MD EDGER OPERATOR Cytology Report FINAL DIAGNOSIS A. PAP SMEAR (SUREPATH) CE: SPECIMEN ADEQUACY: Satisfactory for evaluation; transformation zone present. INTERPRETATION: EPITHELIAL CELL ABNORMALITY - SQUAMOUS. Atypical squamous cells of undetermined significance. Electronically Signed Out By: GASPER Stauffer MD(ASCP) By his/her signature above, the pathologist listed as making the Final Diagnosis certifies that he/she has personally reviewed this case and confirmed or corrected the diagnosis. The Pap test is a screening test primarily for squamous cancers and precursors and has associated false-negative and false-positive results. New technologies such as liquid-based preparations may decrease but will not eliminate all false-negative results. Regular sampling and follow-up of unexplained clinical signs and symptoms are recommended to minimize false negative results. PROCEDURES/ADDEND A HPV Testing (Reflex) Ordered Date: 11/14/2023 A. PAP SMEAR (SUREPATH) CE: Human Papilloma Virus Test NEGATIVE for high-risk Human Papilloma Virus types 16, 18, 45 and the Other high risk probe set (Includes 31, 33, 35, 39, 51, 52, 56, 58, 59, 66, 68) Note: Testing performed by [employer] Onclarity HR-HPV analysis. Clinical correlation is advised. This HPV test was performed at [facility], [address] [place] [address]. This test has been FDA approved for both SurePath and ThinPrep cervical cytology specimens. The accuracy and precision of this test for all other specimen sources has been verified in the Cytopathology Laboratory of the [facility] and has not been cleared or approved by the U.S. Food and Drug Administration. Clinical correlation is advised. CLINICAL HISTORY Date of Last Menstrual Period: Not Provided Menstrual History: No LMP given Contraceptive History: BCPs Other Clinical Conditions: Screening Pap SPECIMEN SOURCE A: PAP SMEAR (SUREPATH) CE Patient Name: RUBY BAUMAN : 2000 (Age: 23) Sex: F Institution: [facility] Location: [facility] Date of Collection: 11/06/2023 Date of Reported: 11/14/2023 08:39 Results to: Sussy Cormier MD [facility] Final Diagnosis A. PAP SMEAR (SUREPATH) CE: SPECIMEN ADEQUACY: Satisfactory for evaluation; transformation zone present. INTERPRETATION: EPITHELIAL CELL ABNORMALITY - SQUAMOUS. Atypical squamous cells of undetermined significance. [facility] Gross Description [facility] Results\Interp retation A. PAP SMEAR (SUREPATH) CE: Human Papilloma Virus TestNEGATIVE for high-risk Human Papilloma Virus types 16, 18, 45 and the Other high risk probe set (Includes 31, 33, 35, 39, 51, 52, 56, 58, 59, 66, 68)Note: Testing performed by [employer] Onclarity HR-HPV analysis. Clinical correlation is advised. This HPV test was performed at [facility], [address] [place] [address]. This test has been FDA approved for both SurePath and ThinPrep cervical cytology specimens. The accuracy and precision of this test for all other specimen sources has been verified in the Cytopathology Laboratory of the [facility] and has not been cleared or approved by the U.S. Food and Drug Administration. Clinical correlation is advised. [facility] Conversion Type (Conversion Source) 11/06/2023 11/08/2023 12:43 PM EDT us Sussy Cormier MD CYTOLOGY ORDERABLES Edited Resul t - Final [facility] [address] [place] [address] * Hepatitis C antibody, qualitative (03/22/2023 11:22 AM EDT) HCV NON-REACTIV E NON-REACTI VE [facility] Blood 03/22/2023 11:2 2 AM EDT 03/22/2023 11:42 AM EDT us Bacilio Irving PA-C LAB BLOOD ORDERABLES Fin al Result [facility] [address] [place] [address] from Last 3 Months or Most Recently Relevant to Health Maintenance Insurance [employer] [address] [address] [facility] [employer] [address] [facility] [employer] [facility] [place] [address] [place] [address] [facility] [place] [id number] Care Teams Radio Message Router Relationship Specialty Start Date End Date Mariely Dailey NP [address] [place] [phone] PCP - General Family Medicine 05/15/21 Additional Source Comments The information contained in this document represents components of the legal health record. It is not the complete legal health record.[facility]
--- OUTSIDE RECORDS SUMMARY | 2025-06-17 15:10 | XMS_ITS | Clinical Summary ---
Author Organization [facility] Address [address] [place] [phone] Phone Care Team Providers Care Pelt Inspector Name Role Phone Unavailable Primary Care Provider Unavailabl e Allergies Active Allergy Reactions Criticality Noted Date Comments Sulfamethoxazole-Trimethoprim 2017 Serum sickness Medications No known medications Active Problems Problem Noted Date Diagnosed Date Contraception management 11/08/2017 Overview (11/04/2019): Stopped OCP's 2nd to it causing painful intercourse. She does not have pain now that she off OCP. Has nexplanon - placed sep 2019 Assessment & Plan (11/04/2019 1:46 PM EDT): Doing well with nexplanon. Assessment & Plan (10/09/2018 1:21 PM EST): Rebekah wants nexplanon. Numbers given for OBGYN. Stressed import of regular condom use. Acne comedone 11/08/2017 Assessment & Plan (10/09/2018 1:19 PM EST): Worsening now that Rebekah is off OCP. Episodic tension-type headache, not intractable 10/08/2017 Assessment & Plan (10/09/2018 10:51 AM EST): HUMPHREY stopped after pt went on winter vacation and now back occasionally Assessment & Plan (10/17/2017 12:13 PM EST): You have occas migraine HUMPHREY and ibuprofen has not been helpful. - discussed keeping a HUMPHREY diary and trying naproxen 375 mg every 6hrs as needed for HUMPHREY There are many causes for recurrent HUMPHREY - poor diet/hydration, lack of sleep, mood issues/anxiety, caffeine, too much screen time, sun, etc.... When you get a headache - drink water, turn off screens, and record details in a headache diary. Also rest and take ibuprofen every 6hrs if needed. Write down when you get a headache, describe it - location, level of pain, what medication you used and how long the HUMPHREY lasted. MOST IMPORTANT is to look for triggers. What foods or environmental exposures did you have in the preceding 12-24 hours? Come back in to see us if the headaches are not under control, or are occurring more than twice a week for several weeks and getting in the way of your usual activities. Also follow up with us if you get new symptoms such as vomiting in the morning or night wakening with severe HUMPHREY. Generalized anxiety disorder 07/16/2016 Assessment & Plan (11/04/2019 1:45 PM EDT): Feeling less anxious overall. Assessment & Plan (10/09/2018 10:52 AM EST): Pt feels like her anxiety is getting better Assessment & Plan (10/17/2017 12:15 PM EST): You report intermittent anxiety. You have been in therapy in the past. We discussed trying therapy again. Poor dentition 07/16/2016 Assessment & Plan (10/09/2018 10:52 AM EST): Does have a dentist and goes yearly Assessment & Plan (10/17/2017 12:14 PM EST): You are followed by dental Psychosocial stressors 07/16/2016 Overview (10/09/2018): Was homeless summer - apr. Still with same BF who is living with his mom. Pt was in foster care for a few years. Mom with hx of drug abuse and is an alcoholic. Pt now back with her father. Older sister of drug overdose summer 2017. Assessment & Plan (10/09/2018 1:19 PM EST): We discussed issues in overview. Mom is alcoholic with related medical issues and mostly Rebekah is not in contact with her. Rebekah will consider therapy and feels supported by her father and her BF. Her father just got laid off from work. Resolved Problems Problem Noted Date Diagnosed Date Resolved Date Homeless OR in a long-term 11/04/201906/2020 Assessment & Plan (11/04/2019 1:42 PM EDT): Was homeless for 3 months summer 2018. Now living with dad and sister. Housing inadequate to meet patient's needs 11/04/2019 11/04/2019 Immunizations Immunization Administration Dates Next Due DTaP 5 12/31/2003, 1,04/10/2000,01/04,1999 HPV, Quadrivalent 04/10/2012,03/20/2011 Hep A, ped/adol 08/10/2014,03/20/2011 Hep B, ped/adol 09/06/2000,01/05/2000,1999 Hib (PRP-T) 12/30/2000, 0,01/05/2000,11/01 IPV 12/31/2003, 1,01/05/2000,11/01 Influenza, injectable, quadr ivalent, preservative free 11/04/2019,10/09/2018,10/08/2017,07/16 Influenza, intranasal, quadrivalent 06/29/2014 Influenza, intranasal, trivalent 05/09/2010 MMR 12/31/2003,09/06/2000 Meningococcal Conj (Menactra) MCV4P 09/24/2016,0 03/20/2011 Tdap 03/20/2011 Varicella 01/10/2009,09/06/2000 Family History Medical History Relation Name Comments No Known Problems Father Vasquez Emphysema Maternal Grandfather Diabetes Maternal Grandmother Bipolar disorder Mother Depression Mother Breast cancer Paternal Grandmother Substance abuse Sister 2 Arleen Relation Name Status Comments Father Vasquez Father: unknown hx Maternal Grandfather Materna l grandfather: COPD, Maternal Grandmother Materna l grandmother: Diabetes mellitus Mother Mother: mental health Other Family history of Osteoporosis, Family history of arthritis Paternal Grandfather Paternal Grandmother Sister 1 Carlota Alive Sister 2 Arleen (Age 24) OD on hero in and fentenel Social History Tobacco Use Types Packs/Day Years Used Date Smoking Tobacco: Former Smokeless Tobacco: Current Tobacco Cessation:Ready to Q uit: No; Counseling Given: Yes Comments:Never smoker Alcohol Use Standard Drinks/Week Comments No 0 (1 standard drink = 0.6 oz pur e alcohol) Hunger/Food Answer Date Recorded In the last 12 months, did y ou or your family ever eat less than you felt you should because there wasn't enough money for food? No 11/04/2019 Stable Housing Answer Date Recorded Are you worried that in the next 2 months you may not have stable housing? No 11/04/2019 Transportation Concerns Answer Date Rec orded In the last 12 months, have you or your family ever had to go without healthcare because you didn't have a way to get there? No 11/04/2019 Hazards in Home Answer Date Recorded Think about the place you li ve. Do you have problems with any of the following? Pests (mice or roaches), mold, no/not working smoke detectors, water leaks, no window guards. No 2019 Financing Utilities Answer Date Recorde d In the last 12 months, has t he electric, gas, oil, or water company threatened to shut off your services in your home? No 11/04/2019 Safety at Home Answer Date Recorded Are you or your family worried about feeling saf e in your home? No 11/04/2019 Outside Support Answer Date Recorded Do you feel that you need mo re support from other people or programs to help you care for yourself or your family? No 11/04/2019 Understanding Health Concerns Answer Da te Recorded Do you need help understandi ng your or your child's healthcare needs (diagnosis, medications, plan, etc.)? No 11/04/2019 Financing Health Concerns Answer Date R ecorded In the last 12 months, was t here a time when your child needed to see a doctor or get medications or supplies but could not because of cost? No 11/04/2019 Missing School or Work Answer Date Liam rded Did you or your child miss s chool or work because of a health problem that could have been avoided? No 11/04/2019 Comments No Sex and Gender Information Value Date Recorded Sex Assigned at Female 11/04/2019 1:52 PM EDT Legal Sex Female 5:14 PM EDT Gender Identity Female 11/04/2019 1:52 PM EDT Sexual Orientation Straight 11/04/2019 1: 52 PM EDT Last Filed Vital Signs Vital Sign Reading Time Taken Comments Blood Pressure 101/64 11/04/2019 1:12 PM EDT Pulse 79 11/04/2019 1:12 PM EDT Temperature 36.7 C (98 F) 10/09/2018 10:11 AM EST Respiratory Rate - - Oxygen Saturation - - Inhaled Oxygen Concentration - - Weight 53.6 kg (118 lb 3.2 oz) 11/04/2019 1:12 P M EDT Height 164.5 cm (5' 4.76 ) 11/04/2019 1:12 PM ED T Body Mass Index 19.81 11/04/2019 1:12 PM EDT Plan of Treatment Health Maintenance Due Date Last Done Comments DTaP,Tdap,and Td Vaccines (7 - Td or Tdap) 03/20/2021 03/20/2011, 12/31/2003, 03/04/2001, Additional history exists Influenza Vaccines (#1) 2025 11/04/19 20, 10/09/2018, 10/08/2017, Additional history exists COVID-19 Vaccine ( season) 2025 01/04/2021, 12/14/2020 Hepatitis B Vaccines Completed 09/06/2000, 01/05/2000, 1999 HIB Vaccines Completed 12/30/2000, 03/26, 01/05/2000, Additional history exists IPV Vaccines Completed 12/31/2003, 02/23, 01/05/2000, Additional history exists MMR Vaccines Completed 12/31/2003, 09/06/2000 Varicella Vaccines Completed 01/10/2009, 09/06/2000 HPV Vaccines Completed 04/10/2012, 03/20/2011 Hepatitis A Vaccines Completed 08/10/2014, 03/20/20 11 Meningococcal Vaccine Completed 09/24/2016, 011 Men B Vaccine Aged Out No longer elig ible based on patient's age to complete this topic Pneumococcal Vaccine Aged Out No long er eligible based on patient's age to complete this topic Procedures * Due to [place] state law, this organization might not be sharing sensitive test results. Procedure Name Priority Date/Time Associated Diagnosis Comments CHLAMYDIA AND GONORRHEA, AMPLIFIED Routine 11/04/2019 1:26 PM EDT Well adolescent visit from Last 3 Months or Most Recently Relevant to Health Maintenance Results * Due to [place] state law, this organization might not be sharing sensitive test results. * Chlamydia and Gonorrhoea, Amplified (11/04/2019 1:26 PM EDT) Chlamydia Trachomatis, DNA Probe NEGATIVE (NEG) [facility] Comment: No Chlamydia Trachomatis RNA detected in this patient's sample (REFERENCE RANGE/NORMAL VALUE: NOT DETECTED) Note: This test uses project surveyor- mediated amplification method to detect rRNA from C. Trachomatis URINE GC AMP PROBE NEGATIVE (NEG) [facility] Comment: No Neisseria Gonorrhoeae RNA detected in this patient's sample (REFERENCE RANGE/NORMAL VALUE: NOT DETECTED) NOTE: This test uses project surveyor-mediated amplification method to detect rRNA from N.Gonorrhoeae. A negative result does not preclude infection. In the case of a negative urine result, testing of an endocervical(female) or urethral (male) specimen is recommended if there is high clinical suspicion of infection. Due to very high sensitivity of Nucleic Acid Amplification Test, false positive results may occur. Therefore, specimen handling is extremely important. In patients in whom the disease is unlikely, additional sample for testing should be considered after an initial positive result. The performance characteristics of this test have not been evaluated in children. The Aptima Combo2 assay is not intended for the evaluation of suspected sexual abuse or for other medico-legal indications. The ordering provider should assess if the patient had consensual sex without risk of sexual abuse. Consult the [facility] if needed. Contact phone number . Therapeutic failure or success cannot be determined with the Aptima Combo2 assay since nucleic acid may persist following appropriate antimicrobial therapy. The Centers for Disease Control and Prevention (CDC) recommends confirmatory retesting using culture or a different nucleic acid amplification test when positive results occur, if indicated. Testing performed or reported by [facility], a Service of [facility], [address], [place] [address] Edinson Youngblood MD, Latin Dancer Urine 11/04/2019 1:26 PM EDT 11/04/2019 11:34 PM EDT us Erika German MD LAB MICROBIOLOGY - GENERAL O RDERABLES Final Result [facility] from Last 3 Months or Most Recently Relevant to Health Maintenance Insurance [facility] NON PCC
--- OUTSIDE RECORDS SUMMARY | 2025-06-17 15:10 | XMS_ITS | Clinical Summary ---
Author Organization [employer] Address [address] [facility] [address] [place] [address] Care Team Providers Care Trumpet Teacher Name Role Phone Unavailable Primary Care Provider Unavailabl e Social History Tobacco Use Types Packs/Day Years Used Date Smoking Tobacco: Never Assessed Comments Unknown Sex and Gender Information Value Date Recorded Sex Assigned at Not on file Legal Sex Female 11:32 AM EDT Gender Identity Not on file Sexual Orientation Not on file Plan of Treatment Health Maintenance Due Date Last Done Comments Depression Screening 1999 HIV Screening 1999 SDOH Screening 1999 Disability Screening 1999 Alcohol/Substance Use Screening 2011 Tobacco Screening 2011 Family Planning (PISQ) 2014 HPV Vaccines (1 - 3-dose series) 2014 Hepatitis C Screening 2017 DTaP/Tdap/Td Vaccines (1 - Tdap) 2018 Hepatitis B Vaccines (1 of 3 - 19+ 3-dose series) 2018 Pap Smear 2020 COVID-19 Vaccine (1 - 2023-2 5 season) 2025 Influenza Vaccine (#1) 2025 Zoster Vaccines (1 of 2) 2049 RSV Patients and Pa tients Aged 60 years or older (1 - 1-dose 75+ series) 2074 HIB Vaccines Aged Out No longer eligi ble based on patient's age to complete this topic Hepatitis A Vaccines Aged Out No long er eligible based on patient's age to complete this topic IPV Vaccines Aged Out No longer eligi ble based on patient's age to complete this topic Meningococcal B Vaccine Aged Out No l onger eligible based on patient's age to complete this topic Meningococcal Vaccine Aged Out No paul syed eligible based on patient's age to complete this topic Pneumococcal Vaccine: Pediat rics (0 to 5 Years) and At-Risk Patients (6 to 49) Years Aged Out No longer eligible b ased on patient's age to complete this topic RSV under 20 months Aged Out No longe r eligible based on patient's age to complete this topic Rotavirus Vaccines Aged Out No longer eligible based on patient's age to complete this topic Insurance [facility]
== END 2025-06-17 12:58 | disposition home or self-care (01) ==
LOC: HO.HMCFM 11:53
PROVIDERS: PCP Physician Assistant Medical; Visit Provider Physician Assistant Medical
DX: R00.2 Palpitations (principal)

== ENCOUNTER → 2025-06-17 11:52 | Outpatient (BNVA) | payer OTHER, SELFPAY | PROVIDERS: PCP Physician Assistant Medical; Visit Provider Physician Assistant Medical | DX: Z00.00 Encounter for general adult medical examination without abnormal findings (principal); R00.2 Palpitations; F33.1 Major depressive disorder, recurrent, moderate; R41.840 Attention and concentration deficit; R42 Dizziness and giddiness; H92.03 Otalgia, bilateral; G89.29 Other chronic pain; H91.93 Unspecified hearing loss, bilateral; E28.2 Polycystic ovarian syndrome; Z13.31 Encounter for screening for depression; Z13.39 Encounter for screening examination for other mental health and behavioral disorders | CPT/HCPCS: 93005; 96127 ==

== ENCOUNTER 2025-07-07 09:54 | Outpatient (REF) | payer OTHER, SELFPAY ==
--- OUTSIDE RECORDS SUMMARY | 2025-07-07 11:31 | XMS_ITS | Encounter Summary ---
Author Organization [facility] Address [address] [place] [address] Phone Care Team Providers Care Replacer Name Role Phone Provider, Patrice MARIA Primary Care Provider [phone] Encounter Details Date Type Department Care Team (Late st Contact Info) Description 04/11/2017 Conversion Encounter [facility] - [address] [id number] Social History Tobacco Use Types Packs/Day Years [...] on filedocumented in this encounter Care Teams Replacer Relationship Specialty Start Date End Date Provider, MD Patrice [address] [place] [address] PCP - General Pediatrics 01/24/22 02/14/23 documented as of this encounter
--- OUTSIDE RECORDS SUMMARY | 2025-07-07 11:31 | XMS_ITS | Clinical Summary ---
Author Organization [facility] Address [address] [facility] [address] [place] [address] Phone Care Team Providers Care Copy Center Associate Name Role Phone Mariely Dailey NP Primary [...] 12/31/2023 Are you denied basic needs s [facility] as food, clothing, or medical care? No [...] patient's age to complete this topic IPV VACCINES Aged Out No longer eligi ble [...] Pap Test (11/06/2023 12:00 AM EDT) Report [address] [address] Stove Cleaner: Quynh Luna MD DINING CAR WAITER/WAITRESS Cytology Report FINAL DIAGNOSIS A. PAP SMEAR [...] 59, 66, 68) Note: Testing performed by Results Scorecard Onclarity HR-HPV analysis. Clinical correlation is advised. This HPV test was performed at [facility], [address] [place] [address]. This test has been FDA approved for both SurePath and ThinPrep cervical cytology specimens. The accuracy and precision of this test for all other specimen sources has been verified in the Cytopathology Laboratory of the [facility] and has not been cleared or approved by the U.S. Food and Drug Administration. Clinical correlation is advised. CLINICAL HISTORY Date of Last Menstrual Period: Not Provided Menstrual History: No LMP given Contraceptive History: BCPs Other Clinical Conditions: Screening Pap SPECIMEN SOURCE A: PAP SMEAR (SUREPATH) CE Patient Name: RUBY BAUMAN : 2000 (Age: 23) Sex: F Institution: [facility] Location: [facility] Date of Collection: 11/06/2023 Date of Reported: 11/14/2023 08:39 Results to: Sussy Cormier MD [facility] Final Diagnosis A. PAP SMEAR (SUREPATH) CE: SPECIMEN ADEQUACY: Satisfactory for evaluation; transformation zone present. INTERPRETATION: EPITHELIAL CELL ABNORMALITY - SQUAMOUS. Atypical squamous cells of undetermined significance. [facility] Gross Description [facility] Results\Interp retation A. PAP SMEAR (SUREPATH) CE: Human Papilloma Virus TestNEGATIVE for high-risk Human Papilloma Virus types 16, 18, 45 and the Other high risk probe set (Includes 31, 33, 35, 39, 51, 52, 56, 58, 59, 66, 68)Note: Testing performed by Results Scorecard Onclarity HR-HPV analysis. Clinical correlation is advised. This HPV test was performed at [facility], [address] [place] [address]. This test has been FDA approved for both SurePath and ThinPrep cervical cytology specimens. The accuracy and precision of this test for all other specimen sources has been verified in the Cytopathology Laboratory of the [facility] and has not been cleared or approved by the U.S. Food and Drug Administration. Clinical correlation is advised. [facility] Conversion Type (Conversion Source) 11/06/2023 11/08/2023 12:43 PM EDT us Sussy Cormier MD CYTOLOGY ORDERABLES Edited Resul t - Final [facility] [address] [place] [address] * Hepatitis C antibody, qualitative (03/22/2023 11:22 AM EDT) HCV NON-REACTIV E NON-REACTI VE [facility] Blood 03/22/2023 11:2 2 AM EDT 03/22/2023 11:42 AM EDT us Bacilio Irving PA-C LAB BLOOD BKR ORDERABLES Final Result [facility] [address] [place] [address] from Last 3 Months or Most Recently Relevant to Health Maintenance Insurance [employer] Tweet [facility] [address] [facility] [place] Tweet CategoryGR[facility] MCO Proformative [facility] [address] [address] [place] Proformative E[facility] [address] [place] Proformative [facility] [address] [place] [id number] Proformative [facility] Care Teams Copy Center Associate Relationship Specialty Start Date End Date Mariely Dailey NP [address] [place] [id number] PCP - General Family Medicine 05/15/21 Additional Source Comments The information contained in this document represents components of the legal health record. It is not the complete legal health record.[facility]
--- OUTSIDE RECORDS SUMMARY | 2025-07-07 11:31 | XMS_ITS | Clinical Summary ---
Author Organization [facility] Address [address] [place] [phone] Phone Care Team Providers Care Project Account Manager Name Role Phone Unavailable Primary Care Provider [...] Date Resolved Date Homeless OR in a jail 11/04/201906/2020 Assessment & Plan (11/04/2019 1:42 PM [...] complete this topic Procedures * Due to [place] state law, this organization might not be sharing sensitive test results. Procedure Name Priority Date/Time Associated Diagnosis Comments CHLAMYDIA AND GONORRHEA, AMPLIFIED Routine 11/04/2019 1:26 PM EDT Well adolescent visit from Last 3 Months or Most Recently Relevant to Health Maintenance Results * Due to [place] state law, this organization might not be sharing sensitive test results. * Chlamydia and Gonorrhoea, Amplified (11/04/2019 1:26 PM EDT) Chlamydia Trachomatis, DNA Probe NEGATIVE (NEG) [facility] Comment: No Chlamydia Trachomatis RNA detected in this patient's sample (REFERENCE RANGE/NORMAL VALUE: NOT DETECTED) Note: This test uses mule developer- mediated amplification method to detect rRNA from C. Trachomatis URINE GC AMP PROBE NEGATIVE (NEG) [facility] Comment: No Neisseria Gonorrhoeae RNA detected in this patient's sample (REFERENCE RANGE/NORMAL VALUE: NOT DETECTED) NOTE: This test uses mule developer-mediated amplification method to detect rRNA from N.Gonorrhoeae. [...] without risk of sexual abuse. Consult the [facility] if needed. Contact phone number . Therapeutic failure or success cannot be determined with the Aptima Combo2 assay since nucleic acid may persist following appropriate antimicrobial therapy. The Centers for Disease Control and Prevention (CDC) recommends confirmatory retesting using culture or a different nucleic acid amplification test when positive results occur, if indicated. Testing performed or reported by [facility], a Service of [facility], [address], [place] [address] Edinson Youngblood MD, Floor Manager Urine 11/04/2019 1:26 PM EDT 11/04/2019 11:34 PM EDT us Erika German MD LAB MICROBIOLOGY - GENERAL O RDERABLES Final Result [facility] from Last 3 Months or Most Recently Relevant to Health Maintenance Insurance [facility] NON PCC
--- OUTSIDE RECORDS SUMMARY | 2025-07-07 11:31 | XMS_ITS | Encounter Summary ---
Author Organization [facility] Address [address] [place] [phone] Phone Care Team Providers Care 4 H Youth Development Specialist Name Role Phone Provider, Patrice MARIA Primary Care Provider [phone] Encounter Details Date Type Department Care Team (Late st Contact Info) Description 12/02/2009 Documentation [facility] Family Medicine [address] [place] [address] Family Medicine, Physician [address] [place], [place] [id number] Social History Tobacco Use Types Packs/Day Years [...] on filedocumented in this encounter Care Teams 4 H Youth Development Specialist Relationship Specialty Start Date End Date Provider, MD Patrice [address] [place] [phone] PCP - General Pediatrics 01/24/22 02/14/23 documented as of this encounter
--- OUTSIDE RECORDS SUMMARY | 2025-07-07 11:31 | XMS_ITS | Clinical Summary ---
Author Organization [employer] Address [address] [facility] 7[address] [place] [address] Care Team Providers Care Leverman Name Role Phone Unavailable Primary Care Provider [...] patient's age to complete this topic Insurance [facility]
[2025-07-07 13:43] LABS: Hematocrit 40.9 % (37.0-47.0); Hemoglobin 14.1 g/dl (12.0-16.0); Mean Corpuscular HGB Conc 34.5 g/dl (31.0-35.0); Mean Corpuscular Hemoglobin 32.3 pg (27.0-33.0); Mean Corpuscular Volume 93.8 fL (80.0-98.0); NRBC Abs Auto 0.000 X10*3/uL (0.0-0.012); NRBC Pct Auto 0.0 /100WBC (0.0-0.2); Platelet Count 194 X10*3/uL (160-400); Red Blood Count 4.36 X10*6/uL (4.20-5.50); White Blood Count 5.6 X10*3/uL (4.8-10.8)
[2025-07-07 15:18] LABS: CT PCR Urine NOT DETECTED (Not Detect.); NG PCR Urine NOT DETECTED (Not Detect.)
[2025-07-08 03:34] LABS: Syphilis Screen Nonreactive (Nonreactive)
[2025-07-08 04:10] LABS: HIV Num 1 0.05 S/CO (0.00-0.99); ~HepC Num1 0.17 S/CO (0.00-0.79); ~Hepatitis C Antibody Nonreactive (Nonreactive)
== END 2025-07-07 09:55 | disposition home or self-care (01) ==
LOC: HO.HMGCLDS 09:54
PROVIDERS: PCP Physician Assistant Medical; Visit Provider Physician Assistant Medical
DX: Z11.4 Encounter for screening for human immunodeficiency virus [HIV] (principal); Z20.2 Contact with and (suspected) exposure to infections with a predominantly sexual mode of transmission; Z20.6 Contact with and (suspected) exposure to human immunodeficiency virus [HIV]; Z11.59 Encounter for screening for other viral diseases; R42 Dizziness and giddiness; R00.2 Palpitations
CPT/HCPCS: 85027; 86780; 86803; 87389; 87491; 87591

== ENCOUNTER 2025-07-07 14:26 | Outpatient (REF) | payer OTHER, SELFPAY ==
[2025-07-07 16:42] LABS: Alanine Aminotransferase 27 U/L (0-31); Albumin Level 5.0 g/dL (3.5-5.0); Alkaline Phosphatase 82 U/L (39-117); Anion Gap 10 (12-20); Aspartate Amino Transferase 24 U/L (5-31); Blood Urea Nitrogen 7 mg/dL (9-16); Calcium 9.6 mg/dL (8.4-10.2); Carbon Dioxide 29 mmol/L (22-29); Chloride 104 mmol/L (96-108); Cholesterol 113 mg/dL (<200); Estimated Glomerular Filt Rate > 60; HDL Cholesterol 47 mg/dL (>40); Iron 138 mcg/dL (30-160); Magnesium 1.9 mg/dL (1.6-2.6); Percent Iron Saturation 52 % (15-50); Potassium 3.9 mmol/L (3.3-5.1); Sodium 139 mmol/L (135-145); Total Iron Binding Capacity 263 mcg/dL (228-428); Total Protein 7.7 g/dL (6.5-8.0); Triglycerides 64 mg/dL (<150); Unsaturated Iron Binding 125 ug/dL
[2025-07-07 17:01] LABS: Ferritin 70 ng/mL (10-122)
== END 2025-07-07 14:27 | disposition home or self-care (01) ==
LOC: HO.HMGCLDS 14:26
PROVIDERS: PCP Physician Assistant Medical; Visit Provider Physician Assistant Medical
DX: R42 Dizziness and giddiness (principal); R00.2 Palpitations; Z13.6 Encounter for screening for cardiovascular disorders; Z13.0 Encounter for screening for diseases of the blood and blood-forming organs and certain disorders involving the immune mechanism
CPT/HCPCS: 36415; 80053; 80061; 82728; 83540; 83735; 84443

== ENCOUNTER → 2025-08-05 10:00 | Outpatient (REF) | payer OTHER, SELFPAY ==
--- NOTE | 2025-08-05 10:02 | CA_ITS ---
Transthoracic Echocardiogram Patient (Last, First, Middle): Ruby Bauman, Gender: Female Date of : 2000 Age: 24 Procedure Date: 08/05/2025 Procedure Type: Transthoracic Echocardiogram Location: OP Height: 162.56 cm Weight: 54.43 kg BSA: 1.57 m2 Heart Rate: bpm BP: 100 / 58 mmHg Presales Consultant: JAG Referring MD: Maria Dolores OREILLY Last Dipper: Meir Whyte MD Symptoms: R00.2 - Palpitations Study Quality: Adequate ECG Rhythm: Sinus Conclusions: - Essentially normal study Findings Left Ventricle Normal left ventricular size, thickness, and systolic function. The visually estimated ejection fraction is between 65-70%. Diastolic function is normal for age. Right Ventricle Normal right ventricular cavity size and systolic function. Atria Both atria are normal in size. Interatrial shunt cannot be excluded. Aortic Valve The aortic valve structure and function is likely normal. There is no aortic valve stenosis. There is no aortic valve regurgitation. Mitral Valve Normal mitral valve structure and function. There is trace mitral valve regurgitation. There is no mitral valve stenosis. Pulmonic Valve The pulmonic valve is likely normal. Tricuspid Valve Likely normal tricuspid valve structure and function. Tricuspid regurgitation envelope is inadequate for calculation of right ventricular systolic pressure. Normal right atrial pressure. Great Vessels All visible segments of the aorta are normal in size. The pulmonary artery was not well visualized. Venous The inferior vena cava is normal in size and collapses greater than 50% with inspiration. Pericardium/Pleural There is no evidence of pericardial effusion. Prior Study Comparison No prior study available for comparison. Measurements 2D Linear Measurements IVSd: 0.70 0.6-0.9/0.6-1.0 cm LVIDd: 3.49 3.9-5.3/4.2-5.9 cm LVIDd Index: 2.22 2.4-3.2/2.2-3.1 cm/m2 LVIDs: 2.40 2.0-3.6 cm LVPWd: 0.72 0.7-1.1 cm LA Diam: 1.80 2.7-3.8/3.0-4.0 cm LAIDs Index: 1.15 1.5-2.3 cm/m2 LV Mass: 78.15 67-162/88-224 g LV Mass Index: 49.77 43-95/49-115 g/m2 LVOT Diam: 1.90 3.0+(-)1.3 cm 2D Systolic Function EF 4C: 70.00 >55% EF 2C: 65.50 >55% EF BiP: 67.60 >55% Mitral Valve MV Pk E: 0.92 MV PK A: 0.87 MV Decel Time: 186.00 E/A: 1.10 E'Lateral: 12.40 E'Medial: 9.46 E/E' Med: 9.70 E/E' Lat: 7.40 PHT: 54.00 MVA PHT: 4.07 [place]: 4.96 Aortic Valve AoV Pk Pop: 1.28 AoV Mn Pop: 0.94 AoV VTI: 0.25 AoV Pk Grad: 7.00 Aov Mn Grad: 4.00 MARILIN Cont.VTI: 2.12 LVOT LVOT Pk Pop: 1.02 LVOT Mn Pop: 0.73 LVOT VTI: 0.18 LVOT Pk Grad: 4.00 LVOT Mn Grad: 2.00 LVOT Diam: 1.90 LVOT Area: 2.84 Diastolic Function MV Pk E: 0.92 MV Pk A: 0.87 E/A: 1.10 E'Medial: 9.46 E/E' Med: 9.70 E' Laterial: 12.40 E/E' Lat: 7.40 Right Ventricle TAPSE (mm): 26.50 TVS' Pop: 11.70 Tricuspid Valve RA Press: 3.00 Great Vessels Aorta Sinus of Valsalva: 3.00 2.0-3.[address] Ridge: 2.30 1.7-3.4 cm Ao Asc: 2.50 2.1-3.4 cm Ao Arch: 2.30 Pulmonary Veins Pulm Vein S/D 0.80 Updated in Other Vendor System with Status of Final Meir Whyte MD electronically signed on 08/06/2025 4:49:58 PM with status of Final
== END ==
LOC: HO.CARD 10:00
PROVIDERS: PCP Physician Assistant Medical; Visit Provider Physician Assistant Medical
DX: R00.2 Palpitations (principal); F33.1 Major depressive disorder, recurrent, moderate; R41.840 Attention and concentration deficit; R42 Dizziness and giddiness; H92.03 Otalgia, bilateral; H91.93 Unspecified hearing loss, bilateral; G89.29 Other chronic pain
CPT/HCPCS: 93306

== ENCOUNTER → 2025-08-05 10:02 | Outpatient (BNV) | payer OTHER, SELFPAY | PROVIDERS: PCP Physician Assistant Medical; Visit Provider Internal Medicine Cardiovascular Disease | DX: R00.2 Palpitations (principal) | CPT/HCPCS: 93306 ==

== ENCOUNTER 2025-08-05 15:08 | Outpatient (AMB) | payer OTHER, SELFPAY ==
--- NOTE | 2025-08-05 15:14 | A.OFFPC_ITS ---
Vital Signs 08/05/25 15:18 Height 5 ft 4 in Weight 121 lb 6 oz BMI 20.8 BP 110/52 L Blood Pressure Location Lt brachial Position Sitting Respiration 15 Pulse 74 Pulse Source Pulse Oximeter Temp 98.6 F Temp Source Temporal Artery Scan Pulse Oximetry (%) 100 Oxygen Delivery Method Room Air Intake Visit Reasons: FOLLOW UP DIZZINESS, PALPITATIONS Intake Note: Ruby presents in the office today to follow up to dizziness and palpatations. Repairer Typewriter Required: No Is last menstrual period known: Yes Last menstrual period: 07/26/24 Post menopausal: No Patient : No Allergies sulfamethoxazole (From Bactrim) Allergy (Verified 08/05/25 15:18) Seizure trimethoprim (From Bactrim) Allergy (Verified 08/05/25 15:18) Seizure Tobacco use date assessed: 08/05/25 Dental Screening Dental Screen Date: 08/05/25 Did you have a dental visit in the last 12 months?: Yes Did you have a dental problem in the last 6 months where you did not have access to dental care?: No Was dental information given to patient?: Patient has dentist HPI HPI Comments History of Present Illness Details 24 year old female with a pmhx of palpit ations and depression presents for reevvaluation of dizziness, fluctuating hearing loss, heart palpitations. Since her last visit she had lab work completed that did not show a cause for symptoms. Glucose 132 was after she ate a burrito. Ears were flushed but she still has fluctuating hearing loss on both sides and dizzy spells. ENT office in [place] does not take her insurance. Endorses a history of heart palpitations. Echo done today. Holter scheduled next week. She was diagnosed with PCOS by her PCP after lab evaluation. She has BRAID PATTERN SETTER appt scheduled in 2025. I sent a message so pelvic u/s will be scheduled. Anxiety and depression-sees therapist, Nidia Alford at [facility] Psych[facility]rist is through [facility]. They questioned if she might have ADHD, but she says they told her to go to PCP for evaluation and that they do not diagnose or treat this. Endorses forgetfulness, problems focusing, difficulty completing tasks. Sister and niece have ADHD. [facility] is out of pocket. ROS Constitutional: No unexplained weight loss, fever, chills, or night sweats. Eyes: No vision changes, blurry vision, double vision, eye pain, eye redness, eye discharge. ENT: Denies sneezing, congestion, runny nose or sore throat. Respiratory: No shortness of breath, cough or sputum production. Cardiovascular: No chest pain, chest pressure or chest discomfort. No pedal edema. Neurologic: No headache, syncope, unilateral weakness, ataxia, numbness or tingling in the extremities. Psychiatric: see HPI .Physical exam: Constitutional: Alert, in no distress. Head: Normocephalic. Eyes: Pupils are equal, round and reactive to light. Extraocular muscles intact. Ears: canals clear, TMs amin and pearly Neck: Supple, Full range of motion. No lymphadenopathy. No palpable thyroid masses. Respiratory: Clear to auscultation. Cardiovascular: S1 S2 regular. No murmurs. Psychiatric: Normal mood and affect [facility] Medical History (Updated 08/05/25 @ 15:50 by AFIA Villalpando) Hearing problem of both ears Otalgia, bilateral PCOS (polycystic ovarian syndrome) Impaired concentration Routine physical examination Palpitation Decreased hearing Chronic pain of both ears Dizziness History of palpitations Anxiety and depression Family History Mother Substance abuse Alcoholism FH: mental illness Anxiety and depression Bipolar 1 disorder Father Substance abuse Alcoholism Maternal Grandfather Alcoholism Substance abuse Sister FH: mental illness Anxiety and depression Social History (Updated 08/05/25 @ 15:18 by Shazia Rahman CMA) Housing: Apartment Alcohol intake: current Patient Tobacco Use Status: Current everyday Tobacco user (Vaping nicotine) e-Cigarette/Vaping Use: Currently Using Second Hand Smoke Exposure: No service: No Current occupational status: employed and student 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 [employer] Current occupational exposures/hazards: No Cognitive needs: No Hearing needs: No Vision needs: No Female Reproductive History Menstrual Date of last menstrual period: 07/26/24 Questionnaire Thrive Questionnaire Date Thrive assessed: 06/16/25 I am a: Patient What is your living situation today?: I have a steady place to live Within the past 12 months, did the food you bought not last and you didn't have the money to get more?: Never true Within the past 12 months, did you worry whether your food would run out before you got money to buy more?: Never true Do you have trouble paying for medicines?: No Do you have trouble getting transportation to medical appointments?: No Do you have trouble paying your heating and electricity bill?: No Do you have trouble taking care of your child, family member or friend?: No Do you have trouble with day-to-day activities such as bathing, preparing meals, shopping, managing finances, etc.?: No Are you currently unemployed and looking for a job?: No Are you interested in more education?: No Please select the resources that you would like help with: Paying for medicine Currently or been in a relationship where the following occur: No concerns reported THRIVE Score: 0 JUSTYN-7 AMB Questionnaire JUSTYN-7 Date JUSTYN - 7 assessed: 06/17/25 Source: Developed by Drs. Dany Escobar, Sanam Salas, Vikash Barr and colleagues, with an educational kenny from [employer]. Physical exam (Primary Care) Vital Signs: Last Vital Signs Temp 98.6 F 08/05/25 15:18 Pulse 74 08/05/25 15:18 Resp 15 08/05/25 15:18 BP 110/52 L 08/05/25 15:18 Pulse Ox 100 08/05/25 15:18 Oxygen Delivery Method Room Air 08/05/25 15:18 BMI result Body Mass Index 20.8 Tobacco/Smoking Status: Tobacco use Status Tobacco use date assessed 08/05/25 08/05/25 15:22 Patient Tobacco Use Status Current everyday Tobacco ( 08/05/25 15:18 Vaping nicotine) e-Cigarette/Vaping Use Currently Using 08/05/25 15:18 Thrive Assessment: Date of Thrive Assessment Date Thrive assessed 06/16/25 08/05/25 15:16 Currently or been in a relationship where the following occur: No concerns reported Coding Level of Care Code Est Pt Level 4 (65829) Add On Problem Visit Only Diagnoses Palpitation R00.2 Moderate episode of recurrent major depressive disorder F33.1 Active/Remission status: currently active Depression Type: major depressive disorder Major depression episode severity: moderate Major depression recurrence: recurrent Impaired concentration R41.840 Dizziness R42 Chronic pain of both ears H92.03; G89.29 Decreased hearing of both ears H91.93 Laterality: bilateral Assessment & Plan Assessment & Plan (1) Palpitation: Code(s): R00.2 - Palpitations Category: Medical (2) Depression: Code(s): F32.A - Depression, unspecified Category: Medical Qualifiers: Active/Remission status: currently active Depression Type: major depressive disorder Major depression episode severity: moderate Major depression recurrence: recurrent Qualified Code(s): F33.1 - Major depressive disorder, recurrent, moderate (3) Impaired concentration: Code(s): R41.840 - Attention and concentration deficit Category: Medical (4) Dizziness: Code(s): R42 - Dizziness and giddiness Category: Medical (5) Chronic pain of both ears: Code(s): H92.03 - Otalgia, bilateral; G89.29 - Other chronic pain Category: Medical (6) Decreased hearing: Code(s): H91.90 - Unspecified hearing loss, unspecified ear Category: Medical Qualifiers: Laterality: bilateral Qualified Code(s): H91.93 - Unspecified hearing loss, bilateral Plan Holter pending. Echo result pending. Maybe due to orthostasis and baseline low BP given positional changes trigger this. Agree with recommendation to increase fluids. Dysequilibruim, ear pain and decreased hearing (all symptoms intermittent) Impacted cerumen-treated. Placing ENT referral and MRI ordered. Schedule pelvic u/s. Continue management per psych and therapist. Patient says they will not do eval for ADHD. Will see if outpt psych will see her here. Orders: Referrals Ear/Nose/Throat Referral H91.93 - Unspecified hearing loss, bilateral, H92.03 - Otalgia, bilateral, R42 - Dizziness and giddiness
[2025-08-05 15:18] VITALS: BP 110/52; PULSE 74; RESP 15; TEMP 37; O2SAT 100; BMI 20.8
--- OUTSIDE RECORDS SUMMARY | 2025-08-05 22:41 | XMS_ITS | Clinical Summary ---
Author Organization [facility] Address [address] [facility] [address] [place] [phone] Phone Care Team Providers Care Blanket Binder Name Role Phone Mariely Dailey NP Primary [...] needs s [facility] as food, clothing, or medical care? No [...] Pap Test (11/06/2023 12:00 AM EDT) Report [address] [address] Heatset Winder Operator: Quynh Luna MD PRIMARY CARE NURSE Cytology Report FINAL DIAGNOSIS A. PAP SMEAR [...] 59, 66, 68) Note: Testing performed by [employer] HR-HPV analysis. Clinical correlation is advised. This HPV test was performed at [facility], [address] [place] [address]. This test has been FDA approved for both SurePath and ThinPrep cervical cytology specimens. The accuracy and precision of this test for all other specimen sources has been verified in the Cytopathology Laboratory of the [facility] and has not been cleared or approved by the U.S. Food and Drug Administration. Clinical correlation is advised. CLINICAL HISTORY Date of Last Menstrual Period: Not Provided Menstrual History: No LMP given Contraceptive History: BCPs Other Clinical Conditions: Screening Pap SPECIMEN SOURCE A: PAP SMEAR (SUREPATH) CE Patient Name: RUBY BAUMAN : 2000 (Age: 23) Sex: F Institution: [facility] Location: [facility] Date of Collection: 11/06/2023 Date of Reported: 11/14/2023 08:39 Results to: Sussy Cormier MD [facility] Final Diagnosis A. PAP SMEAR (SUREPATH) CE: SPECIMEN ADEQUACY: Satisfactory for evaluation; transformation zone present. INTERPRETATION: EPITHELIAL CELL ABNORMALITY - SQUAMOUS. Atypical squamous cells of undetermined significance. [facility] Gross Description [facility] Results\Interp retation A. PAP SMEAR (SUREPATH) CE: Human Papilloma Virus TestNEGATIVE for high-risk Human Papilloma Virus types 16, 18, 45 and the Other high risk probe set (Includes 31, 33, 35, 39, 51, 52, 56, 58, 59, 66, 68)Note: Testing performed by [employer] HR-HPV analysis. Clinical correlation is advised. This HPV test was performed at [facility], [address] [place] [address]. This test has been FDA approved for both SurePath and ThinPrep cervical cytology specimens. The accuracy and precision of this test for all other specimen sources has been verified in the Cytopathology Laboratory of the [facility] and has not been cleared or approved by the U.S. Food and Drug Administration. Clinical correlation is advised. [facility] Conversion Type (Conversion Source) 11/06/2023 11/08/2023 12:43 PM EDT us Sussy Cormier MD CYTOLOGY ORDERABLES Edited Resul t - Final [facility] [address] [place] [address] * Hepatitis C antibody, qualitative (03/22/2023 11:22 AM EDT) HCV NON-REACTIV E NON-REACTI VE [facility] Blood 03/22/2023 11:2 2 AM EDT 03/22/2023 11:42 AM EDT us Bacilio Irving PA-C LAB BLOOD BKR ORDERABLES Final Result [facility] [address] [place] [address] from Last 3 Months or Most Recently Relevant to Health Maintenance Insurance [employer] [place] [employer] [address] [place] [employer] [address] [facility] [place] [facility] [place] [place] [employer] Member Subscriber Plan / Payer ( fective 2021-Present) Name:Ruby Bauman Relation to Subscriber:Self Name:Ruby Bauman Payer ID:[id number] Group ID:[id number] Type:Medicaid Address: [place] [id number] [facility] [place] [employer] [facility] [employer] [address] [place] [address] [employer] [facility] [place] [id number] Care Teams Blanket Binder Relationship Specialty Start Date End Date Mariely Dailey NP [address] [place] [phone] PCP - General Family Medicine 05/15/21 Additional Source Comments The information contained in this document represents components of the legal health record. It is not the complete legal health record.[facility]
--- OUTSIDE RECORDS SUMMARY | 2025-08-05 22:41 | XMS_ITS | Encounter Summary ---
Author Organization [facility] Address [address] [place] [phone] Phone Care Team Providers Care Data Compiler Name Role Phone Provider, Patrice MARIA Primary Care Provider [phone] Encounter Details Date Type Department Care Team (Late st Contact Info) Description 12/02/2009 Documentation [facility] [address] [place] [address] Family Medicine, Physician [address] [place], [place] [id number] Social History Tobacco Use Types Packs/Day Years [...] on filedocumented in this encounter Care Teams Data Compiler Relationship Specialty Start Date End Date Provider, MD Patrice [address] [place] [phone] PCP - General Pediatrics 01/24/22 02/14/23 documented as of this encounter
--- OUTSIDE RECORDS SUMMARY | 2025-08-05 22:41 | XMS_ITS | Encounter Summary ---
Author Organization [facility] Address [address] [place] [address] Phone Care Team Providers Care Tower Equipment Repairer Name Role Phone Provider, Patrice MARIA Primary Care Provider [phone] Encounter Details Date Type Department Care Team (Late st Contact Info) Description 04/11/2017 Conversion Encounter [facility] [address] [id number] Social History Tobacco Use Types Packs/Day Years [...] on filedocumented in this encounter Care Teams Tower Equipment Repairer Relationship Specialty Start Date End Date Provider, MD Patrice [address] [place] [phone] PCP - General Pediatrics 01/24/22 02/14/23 documented as of this encounter
--- OUTSIDE RECORDS SUMMARY | 2025-08-05 22:41 | XMS_ITS | Clinical Summary ---
Author Organization [facility] Address [address] [place] [phone] Phone Care Team Providers Care Auto Transmission Technician Name Role Phone Unavailable Primary Care Provider [...] Date Resolved Date Homeless OR in a senior care 11/04/201906/2020 Assessment & Plan (11/04/2019 1:42 PM [...] complete this topic Procedures * Due to [place] state law, this organization might not be sharing sensitive test results. Procedure Name Priority Date/Time Associated Diagnosis Comments CHLAMYDIA AND GONORRHEA, AMPLIFIED Routine 11/04/2019 1:26 PM EDT Well adolescent visit from Last 3 Months or Most Recently Relevant to Health Maintenance Results * Due to [place] state law, this organization might not be sharing sensitive test results. * Chlamydia and Gonorrhoea, Amplified (11/04/2019 1:26 PM EDT) Chlamydia Trachomatis, DNA Probe NEGATIVE (NEG) [facility] Comment: No Chlamydia Trachomatis RNA detected in this patient's sample (REFERENCE RANGE/NORMAL VALUE: NOT DETECTED) Note: This test uses high pressure operator- mediated amplification method to detect rRNA from C. Trachomatis URINE GC AMP PROBE NEGATIVE (NEG) [facility] Comment: No Neisseria Gonorrhoeae RNA detected in this patient's sample (REFERENCE RANGE/NORMAL VALUE: NOT DETECTED) NOTE: This test uses high pressure operator-mediated amplification method to detect rRNA from N.Gonorrhoeae. [...] risk of sexual abuse. Consult the [facility] if needed. Contact phone number . Therapeutic failure or success cannot be determined with the Aptima Combo2 assay since nucleic acid may persist following appropriate antimicrobial therapy. The Centers for Disease Control and Prevention (CDC) recommends confirmatory retesting using culture or a different nucleic acid amplification test when positive results occur, if indicated. Testing performed or reported by [facility], a Service of [facility], [address], [place] [address] Edinson Youngblood MD, Land Economist Urine 11/04/2019 1:26 PM EDT 11/04/2019 11:34 PM EDT us Erika German MD LAB MICROBIOLOGY - GENERAL O RDERABLES Final Result [facility] from Last 3 Months or Most Recently Relevant to Health Maintenance Insurance [facility] NON PCC
--- OUTSIDE RECORDS SUMMARY | 2025-08-05 22:41 | XMS_ITS | Clinical Summary ---
Author Organization [employer] Address [address] [facility] [address] [place] [address] Care Team Providers Care Loftsman/Woman Name Role Phone Unavailable Primary Care Provider [...] Pap Smear 2020 COVID-19 Vaccine (1 - 2024-2 6 season) 2025 Influenza Vaccine (#1) 2025 Zoster [...] patient's age to complete this topic Insurance [facility]
== END 2025-08-05 15:58 | disposition home or self-care (01) ==
LOC: HO.HMCFM 15:09
PROVIDERS: PCP Physician Assistant Medical; Visit Provider Physician Assistant Medical
DX: R00.2 Palpitations (principal); F33.1 Major depressive disorder, recurrent, moderate; R41.840 Attention and concentration deficit; R42 Dizziness and giddiness; H92.03 Otalgia, bilateral; G89.29 Other chronic pain; H91.93 Unspecified hearing loss, bilateral